=== PATIENT | female | born 1990 | race Caucasian/White ===

== ENCOUNTER 2020-05-25 08:09 | Emergency (ER) | payer BC, SELFPAY ==
--- NOTE | 2020-05-25 08:17 | ED.ABDPAIN ---
HPI - Abdominal Pain General Chief Complaint: Abdominal Pain Stated Complaint: Abdominal pain Time Seen by Provider: 05/25/20 08:33 Source: patient and RN notes reviewed Mode of arrival: ambulatory Limitations: no limitations History of Present Illness HPI narrative: 30-year-old female presents with concern for abdominal pain. Reports symptoms started on Sunday and have been worsening. She reports change in bowel habits, reports stools were liquidy on Sunday and Sunday and have become more soft. She denies vomiting, reports normal appetite. Reports her last menstrual period ended yesterday. She reports a history of endometriosis for which she had surgery 1 year ago. Reports she also had her appendix removed 1 year ago. She denies fever. MD elicited complaint: abdominal pain Related Data Home Medications Medication Instructions Recorded Confirmed norethindrone-e.estradiol-iron 1 tablet PO DAILY 05/25/20 05/25/20 [Aurovela Fe 1-20 (28)] Allergies Allergy/AdvReac Type Severity Reaction Status Date / Time No Known Allergies Allergy Verified 05/25/20 08:29 Review of Systems Review of Systems: Narrative: CONSTITUTIONAL: Denies malaise, chills, sweats, or fever. ENT: Denies sore throat. CARDIOVASCULAR: Denies chest pain, palpitations, or edema. RESPIRATORY: Denies cough or dyspnea. GASTROINTESTINAL: Reports abdominal pain, diarrhea, soft stools. Denies nausea, vomiting,bloody, or mucous stools. GENITOURINARY: Denies frequency, urgency, dysuria or hematuria. Denies flank pain MUSCULOSKELETAL: Denies myalgia. All systems reviewed & are unremarkable except as noted in HPI and below PMFSH Social History Social History Smoking status: Never smoker Second hand tobacco smoke exposure: No Alcohol intake: never Gender identity (if verbalized by the patient): Female Comments At time of signature, agree with nursing past medical, surgical, social and family history. There is no relevant family history pertinent to the presenting complaint Exam Narrative: Exam Narrative: GENERAL: Well-appearing, well-nourished, and in no acute distress. HEAD: Normocephalic. EYES: PERRLA, conjunctivae clear. NECK: Supple. No lymphadenopathy CHEST: Clear to auscultation. No respiratory distress. HEART: Regular rate and rhythm. No murmur heard. Normal peripheral pulses. ABDOMEN: Soft, left upper quadrant and left lower quadrant tenderness upon palpation, nondistended, normal active bowel sounds, no palpable or pulsatile masses, no guarding. No CVA tenderness SKIN: Warm, dry, no rash. NEURO: Alert and oriented x3. PSYCH: Normal mood and affect Course Course Emergency Course: Patient is aware of, understands and agrees to be seen in the emergency department. Patient agrees to proceed directly to the emergency department. Portions of this record may have been created with voice recognition software Vital Signs Vital signs: Reviewed. Transfer Transfered to: [facility] Transportation: Other (Private vehicle) Transfer rationale: Abdominal pain, left lower quadrant, left upper quadrant tenderness Transfer comments: Patient stable for transfer patient stable for transfer via private vehicle MDM - Abdominal Pain MDM Narrative Medical decision making narrative: Patient's history and exam warrant further evaluation emergency department Lab Data Attestation: I reviewed the patient's lab results. Critical Care Time Critical Care Time Critical Care Time: No Discharge Plan Discharge Clinical Impression: Abdominal pain Patient Disposition: Acute Care Hospital Prescriptions: No Action norethindrone-e.estradiol-iron [Aurovela Fe 1-20 (28)] 1 mg-20 mcg (21)/75 mg (7) Tablet 1 tablet PO DAILY RF: 0 Follow-up/Referrals: Va Booker MD [Primary Care Provider] - Time of Disposition: 08:49
[2020-05-25 08:21] VITALS: BP 107/63; PULSE 72; RESP 16; TEMP 37; O2SAT 99
== END 2020-05-25 08:48 | disposition short-term general hospital (02) ==
PROVIDERS: Emergency Provider Nurse Practitioner; PCP Family Medicine
DX: R10.32 Left lower quadrant pain (principal); R10.12 Left upper quadrant pain
CPT/HCPCS: 81003; 81025; 99213; G0463

== ENCOUNTER 2020-05-25 09:03 | Emergency (ER) | payer BC, SELFPAY ==
--- NOTE | ~2020-05-25 | CT_ITS ---
EXAMINATION: CT abdomen pelvis w con DATE: 05/25/2020 10:28 INDICATION: Left upper quadrant abdominal pain for 4 days TECHNIQUE: Computed tomography (CT) of the abdomen and pelvis was performed with 100 cc Omnipaque 350 intravenous contrast. Automated exposure control and iterative reconstruction technique were employe d. Exam dose: 212.33 mGy-cm total exam DLP. COMPARISON: None. FINDINGS: The lung bases are clear. Heart size is normal. No pericardial or pleural effusion. The liver, gallbladder, spleen, pancreas, bile ducts and pancreatic duct, and adrenal glands and kidn eys appear normal. Normal caliber of the abdominal aorta. There is a curvilinear 9 mm opaque density in the right lateral pelvic area adjacent to the cecal tip , possibly postsurgical changes from appendectomy or less likely some opaque material within the appe ndix. Recommend correlation with surgical history. No CT evidence of appendicitis is appreciated. No bowel obstruction, bowel wall thickening, pneumatosis or intraperitoneal free air. 12 mm probable left ovarian cyst. Up to approximately 8 mm right ovarian probable cysts. The uterus, adnexal areas and urinary bladder otherwise unremarkable. No intraperitoneal or retroperitoneal or pelvic mass lesion or adenopathy or ascites. Included skeletal structures are unremarkable. IMPRESSION: Possible appendectomy; recommend clinical correlation; no apparent evidence of appendici tis Probable ovarian cysts Reviewed, dictated and finalized at [facility]. Reviewed, dictated and finalized at [facility]. IMPRESSION: Possible appendectomy; recommend clinical correlation; no apparent evidence of appendicitis Probable ovarian cysts
--- NOTE | 2020-05-25 09:05 | ED.ABDPAIN ---
HPI - Abdominal Pain General Chief Complaint: Abdominal Pain Stated Complaint: ABD PAIN Time Seen by Provider: 05/25/20 09:05 Source: patient Mode of arrival: ambulatory Limitations: no limitations History of Present Illness HPI narrative: Patient is a 30-year-old female with a history of endometriosis who presents for evaluation from urgent care for left-sided abdominal pain. Pain is currently mild in nature, intermittently crampy in nature. Started initially over 3 days ago and was sharp and stabbing in nature mostly on the left side of her abdomen including upper and lower abdomen. No radiation of pain to the flank. She has had some associated nausea without vomiting. No fever, chills, has had some associated watery diarrhea. No recent travels. No severe myalgias. No cough, chest pain, shortness of breath. No recent sick contacts. No food indiscretions. Per urgent care, patient negative test, negative urinalysis. Related Data Home Medications Medication Instructions Recorded Confirmed norethindrone-e.estradiol-iron 1 tablet PO DAILY 05/25/20 05/25/20 [Aurovela Fe 1-20 (28)] Allergies Allergy/AdvReac Type Severity Reaction Status Date / Time No Known Allergies Allergy Verified 05/25/20 08:29 Review of Systems Review of Systems: Narrative: CONSTITUTIONAL: Denies fever ENT: Denies rhinorrhea, congestion CARDIOVASCULAR: Denies chest pain, palpitations, or edema. RESPIRATORY: Denies cough or dyspnea. GASTROINTESTINAL: Reports left-sided abdominal pain, nausea without vomiting, reports watery diarrhea GENITOURINARY: Denies dysuria or hematuria. SKIN: Denies rash or itching. MUSCULOSKELETAL: Denies back pain, joint pain, or myalgia. NEUROLOGIC: Denies headache, numbness, or weakness. [facility] Past Medical History Medical History (Updated 05/25/20 @ 11:08 by Nazia Mcdaniel MD) Endometriosis Healthy adult Surgical History Surgical History (Updated 05/25/20 @ 09:21 by Nazia Mcdaniel MD) History of appendectomy Social History Social History Smoking status: Never smoker Second hand tobacco smoke exposure: No Alcohol intake: never Gender identity (if verbalized by the patient): Female Exam Narrative: Exam Narrative: GENERAL: Awake, alert, conversant HEAD: Normocephalic, atraumatic. EYES: PERRLA and EOMI. ENT: Nares clear, no rhinorrhea or epistaxis. Mucous membranes moist. NECK: Supple. CHEST: No respiratory distress, breathing even and non labored HEART: Regular rate, sinus rhythm ABDOMEN:Non distended, mild tenderness of the left upper and left lower quadrant, no rebound, no guarding, nonrigid, no focal right upper or right lower quadrant tenderness EXTREMITIES: Normal range of motion. No edema. SKIN: Warm, dry, no rash. NEURO:No focal deficits. Alert and oriented x3 Course Vital Signs Vital signs: Vital Signs Temperature 36.8 C 05/25/20 09:30 Pulse Rate 71 05/25/20 09:30 Respiratory Rate 16 05/25/20 09:30 Blood Pressure 129/76 05/25/20 09:30 Pulse Oximetry 99 05/25/20 09:30 Temperature 36.8 C 05/25/20 09:30 Pulse Rate 71 05/25/20 09:30 Respiratory Rate 16 05/25/20 09:30 Blood Pressure 129/76 05/25/20 09:30 Pulse Oximetry 99 05/25/20 09:30 MDM - Abdominal Pain MDM Narrative Medical decision making narrative: Patient presented from urgent care for evaluation of left-sided middle abdominal pain. The time of assessment, pain is very benign, abdominal exam is quite reassuring. Laboratory work-up is reassuring. CT scan shows ovarian cyst without evidence of infection, obstruction or mass. Considered ovarian torsion for etiology of symptoms, but patient is not having any lower pelvic pain, no recurrent pain, thus I doubt this diagnosis. At this point, patient is comfortable discharge home. Patient was instructed as to limitations of imaging and lab evaluation and encouraged to re
[2020-05-25 09:30] VITALS: BP 129/76; PULSE 71; RESP 16; TEMP 36.8; O2SAT 99
[2020-05-25 09:48] LABS: Basophils Absolute Auto 0.1 K/mm3 (0.0-0.1); Basophils Percent Auto 0.6 % (0.2-1.2); Eosinophils Absolute Auto 0.1 K/mm3 (0-0.3); Eosinophils Percent Auto 0.8 % (0-4.4); Hematocrit 45.6 % (37.0-47.0); Hemoglobin 15.5 g/dL (12.0-15.0); Immature Granulocyte Absolute 0.02 K/mm3 (0.00-0.031); Immature Granulocyte Percent A 0.3 % (0-0.5); Lymphocytes Absolute Auto 1.96 K/mm3 (0.9-3.2); Lymphocytes Percent Auto 25.2 % (18.3-44.2); Mean Corpuscular Hemoglobin 31.4 pg (26-34); Mean Corpuscular Volume 92.3 fl (80-100); Mean Platelet Volume 11.5 fl (7.4-10.4); Monocytes Absolute Auto 0.4 K/mm3 (0.1-0.6); Monocytes Percent Auto 5.4 % (2.6-8.5); Neutrophils Absolute Auto 5.3 K/mm3 (1.3-6.7); Neutrophils Percent Auto 67.7 % (45.5-73.1); Platelet Count Result 247 k/mm3 (150-375); Red Blood Count 4.94 M/mm3 (4.2-5.4); Red Cell Distribution Width 11.6 % (11.5-14.5); White Blood Count 7.8 K/mm3 (4.5-10.0)
[2020-05-25 09:59] LABS: Add Urine Microscopic? NO; Appearance Urine Clear (Clear); Bilirubin Urine Negative (Negative); Blood Urine Negative (Negative); Color Urine Yellow (Yellow); Glucose Urine UA Negative (Negative); Ketones Urine Negative (Negative); Leukocyte Esterase Ur Negative LEU/UL (Negative); Mucus Urine Few /lpf; Nitrate Urine Negative (Negative); Protein Urine Negative (Negative); RBC Urine 0-2 /hpf (0-2); Specific Grav Ur 1.025 (1.001-1.035); Squamous Epithelial Cell Urine Rare /hpf (Few); Urobilinogen Urine Negative mg/dL (<2.0); WBC Urine 0-3 /hpf
[2020-05-25 10:06] LABS: Alanine Aminotransferase 12 U/L (4-35); Albumin Level 4.4 g/dL (3.5-5.1); Alkaline Phosphatase 53 U/L (38-126); Anion Gap 6 mmol/L (8-16); Aspartate Amino Transferase 18 U/L (14-36); Bilirubin,Total 0.8 mg/dL (0.2-1.3); Blood Urea Nitrogen 12 mg/dL (7-17); Calcium 9.2 mg/dL (8.4-10.2); Carbon Dioxide 26 mmol/L (22-30); Chloride 106 mmol/L (98-107); Estimated CRCL calculation 88 ml/min; Estimated Glomerular Filt Rate > 60; Glucose 88 mg/dL (65-105); Lipase 47 U/L (23-300); Potassium 3.7 mmol/L (3.4-5.0); Sodium 138 mmol/L (137-145)
[2020-05-25 11:35] VITALS: BP 108/58; PULSE 50; RESP 16; O2SAT 100
== END 2020-05-25 11:35 | disposition home or self-care (01) ==
PROVIDERS: Emergency Provider Emergency Medicine; PCP Family Medicine
DX: R10.9 Unspecified abdominal pain (principal); N80.9 Endometriosis, unspecified; R93.89 Abnormal findings on diagnostic imaging of other specified body structures
CPT/HCPCS: 36415; 74177; 80053; 81003; 81025; 83690; 85025; 99284; Q9967

== ENCOUNTER 2021-03-10 10:18 | Emergency (ER) | payer OTHER, SELFPAY ==
--- NOTE | ~2021-03-10 | XR_ITS ---
XR chest 2V DATE: 03/10/2021 12:32 INDICATION: Cough, chest tightness for a few months. Nonsmoker. History of asthma. TECHNIQUE: 2 views COMPARISON: None FINDINGS: Normal heart size. No hilar or mediastinal enlargement. No pulmonary infiltrate or consolid ation, pleural effusion or pulmonary vascular congestion or pneumothorax. IMPRESSION: Negative Reviewed, dictated and finalized at [facility]. IMPRESSION: Negative
[2021-03-10 10:33] VITALS: BP 109/69; PULSE 71; RESP 17; TEMP 36.5; O2SAT 100
--- NOTE | 2021-03-10 12:17 | ED.URI ---
HPI - URI/Sore Throat General Chief Complaint: Upper Respiratory Infection Stated Complaint: cough/chest tightness Time Seen by Provider: 03/10/21 12:18 Source: patient Mode of arrival: ambulatory Limitations: no limitations History of Present Illness HPI Narrative: Juliette Sigala is a 30 yo female with headaches, dry cough, comes to this clinic 4-6 month. Patient states that she coughs hard at night and feels like she is choking, short of breath this week with exertion, no fever but also feels fatigued . Related Data Home Medications Medication Instructions Recorded Confirmed norethindrone ac-eth estradiol 1 tablet PO DAILY 03/10/21 03/10/21 sertraline 100 mg PO DAILY 03/10/21 03/10/21 Allergies Allergy/AdvReac Type Severity Reaction Status Date / Time No Known Allergies Allergy Verified 03/10/21 10:51 Review of Systems Review of Systems: Narrative: CONSTITUTIONAL: Denies fever, chills, sweats. EYES: Denies visual changes, redness, discharge. ENT: Denies rhinorrhea, no congestion, has sore throat, otalgia. CARDIOVASCULAR: Denies chest pain, palpitations, edema. RESPIRATORY: dyspnea with walking, wheezing, dry cough GASTROINTESTINAL: Denies abdominal pain, nausea, vomiting, diarrhea. GENITOURINARY: Denies dysuria, hematuria, abnormal discharge SKIN: Denies rash or itching. NEUROLOGIC: Denies numbness, or focal weakness. PSYCHIATRIC: Denies anxiety or depression. PMFSH Past Medical History Medical History Endometriosis Healthy adult Surgical History Surgical History History of appendectomy Family History Family History Grandparent Diabetes mellitus Malignant neoplasm of prostate Social History Social History Smoking status: Never smoker Second hand tobacco smoke exposure: No Alcohol intake: never Gender identity (if verbalized by the patient): Female Comments At time of signature, I agree with nursing past medical, surgical, social and family history. There is no relevant family history pertinent to the presenting complaint. Exam Narrative: Exam Narrative: GENERAL: This is a well-nourished, well-developed patient, in mild distress. HEAD: normocephalic, atraumatic. EYES: Sclera clear/white. Vision is grossly intact. EARS: External ears normal, auditory canals clear and without drainage, TMs normal without perforation. Hearing grossly intact. NOSE: External nose normal without nasal discharge, nares without redness, no rhinorrhea. THROAT: Mucous membranes moist, posterior pharynx erythema and swelling NECK: Neck supple, submandibular tender lymph node CARDIOVASCULAR: Regular rate and rhythm without murmurs, gallops, or rubs. RESPIRATORY: Coarse to auscultation. Breath sounds equal bilaterally. No wheezes, rales, or rhonchi. GASTROINTESTINAL: Abdomen soft, non-tender, SKIN: warm, intact with no suspicious lesions or rash, good texture and turgor. NEURO: awake, alert, and oriented to person, place and time. There were no obvious focal neurologic abnormalities. Steady gait EXTREMITIES: Normal range of motion. BACK: Nontender without deformity Course Course Emergency Course: Patient comes with complaints of cough that makes her feel like checking at night breath with walking she states has had some cough and fatigue symptoms for 5 to 6 months sore throat she says she started 4 to 5 days ago Her strep is negative Covid is negative X-ray is negative - no pulmonary infiltrate, no pleural effusion Started on Zithromax, prednisone, Tessalon Vital Signs Vital signs: Vital Signs Temperature 97.7 F 03/10/21 10:33 Pulse Rate 71 03/10/21 10:33 Respiratory Rate 17 03/10/21 10:33 Blood Pressure 109/69 03/10/21 10:33 Pulse Oximetry 100 03/10/21 10:33 T
== END 2021-03-10 12:59 | disposition home or self-care (01) ==
PROVIDERS: Emergency Provider Nurse Practitioner; PCP Family Medicine
DX: J40 Bronchitis, not specified as acute or chronic (principal); L04.9 Acute lymphadenitis, unspecified; Z20.822 Contact with and (suspected) exposure to COVID-19; N80.9 Endometriosis, unspecified
CPT/HCPCS: 71046; 87081; 87426; 87880; 99213; C9803; G0463

== ENCOUNTER → 2021-04-15 04:20 | Outpatient (CLI) | payer OTHER, SELFPAY ==
[2021-04-15 18:23] LABS: SARS-CoV-2 RNA PCR Negative
== END ==
PROVIDERS: PCP Family Medicine; Visit Provider Physician Assistant
DX: R05 Cough (principal); Z20.822 Contact with and (suspected) exposure to COVID-19
CPT/HCPCS: C9803; U0003; U0005

== ENCOUNTER → 2021-11-10 12:06 | Outpatient (CLI) | payer SELFPAY ==
--- NOTE | ~2021-11-10 | XR_ITS ---
EXAMINATION: XR wrist LT w scaphoid INDICATION: Left breast pain TECHNIQUE: Four views of the left wrist are obtained on five radiographs. COMPARISON: 11/12/2018 FINDINGS: There is no fracture, dislocation, or subluxation. The bones, soft tissues, and joint space s are normal. IMPRESSION: 1. No acute osseous abnormality. Reviewed, dictated and finalized at [facility].
== END ==
PROVIDERS: PCP Physician Assistant; Visit Provider Physician Assistant
DX: S69.92XA Unspecified injury of left wrist, hand and finger(s), initial encounter (principal)
CPT/HCPCS: 73110

== ENCOUNTER 2022-03-31 06:47 | Outpatient (CLI) | payer OTHER, SELFPAY ==
--- NOTE | ~2022-03-31 | MR_ITS ---
EXAMINATION: MR cervical spine wo con DATE: 03/31/2022 07:21 INDICATION: Neck pain. TECHNIQUE: Magnetic resonance imaging (MRI) of the cervical spine was performed without intravenous c ontrast. Sequences included sagittal T2-weighted FSE, sagittal T2-weighted FS FSE, sagittal T1-weight ed FSE, axial MERGE, and axial T2-weighted FSE. COMPARISON: None FINDINGS: Bone alignment is normal. Vertebral body heights and intervertebral disc heights are normal . The spinal cord signal intensity is normal. The following disc levels are specifically discussed: C2-C3: The disc does not extend beyond the endplate margin. There is no uncovertebral joint osteoarth ritis. There is mild left facet joint osteoarthritis. There is no neural foraminal stenosis. There is no central canal stenosis. C3-C4: The disc does not extend beyond the endplate margin. There is mild left uncovertebral joint os teoarthritis. There is mild bilateral facet joint osteoarthritis. There is no neural foraminal stenos is. There is no central canal stenosis. C4-C5: The disc does not extend beyond the endplate margin. There is no uncovertebral joint osteoarth ritis. There is no facet joint osteoarthritis. There is no neural foraminal stenosis. There is no monique tral canal stenosis. C5-C6: The disc does not extend beyond the endplate margin. There is no uncovertebral joint osteoarth ritis. There is no facet joint osteoarthritis. There is no neural foraminal stenosis. There is no monique tral canal stenosis. C6-C7: The disc does not extend beyond the endplate margin. There is no uncovertebral joint osteoarth ritis. There is mild bilateral facet joint osteoarthritis. There is no neural foraminal stenosis. The re is no central canal stenosis. C7-T1: The disc does not extend beyond the endplate margin. There is no uncovertebral joint osteoarth ritis. There is no facet joint osteoarthritis. There is no neural foraminal stenosis. There is no monique tral canal stenosis. IMPRESSION: 1. Multilevel mild facet joint osteoarthritis. Reviewed, dictated and finalized at [facility].
== END 2022-03-31 06:48 | disposition home or self-care (01) ==
PROVIDERS: PCP Family Medicine; Visit Provider Physician Assistant
DX: S19.9XXA Unspecified injury of neck, initial encounter (principal); M54.2 Cervicalgia; M85.88 Other specified disorders of bone density and structure, other site
CPT/HCPCS: 72141

== ENCOUNTER → 2022-10-25 09:11 | Outpatient (CLI) | payer SELFPAY ==
--- NOTE | ~2022-10-25 | XR_ITS ---
XR foot LT min 3V DATE: 10/25/2022 09:27 INDICATION: Left foot pain TECHNIQUE: 4 views COMPARISON: None FINDINGS: Os tibiale externum, normal variant. No fracture or dislocation, periosteal reaction or bone destruction. IMPRESSION: No significant abnormality Reviewed, dictated and finalized at [facility]. [facility] IMPRESSION: No significant abnormality
== END ==
PROVIDERS: PCP Family Medicine; Visit Provider Family Medicine
DX: M79.672 Pain in left foot (principal)
CPT/HCPCS: 73630

== ENCOUNTER 2024-07-23 13:50 | Outpatient (CLI) | payer OTHER, SELFPAY ==
--- NOTE | ~2024-07-23 | US_ITS ---
EXAMINATION: US pelvic complete w TV DATE: 07/23/2024 14:17 INDICATION: Unspecified abdominal pain. Endometriosis. TECHNIQUE: Multiple transabdominal and transvaginal sonographic images of the pelvis were obtained. COMPARISON: CT abdomen and pelvis 05/25/2020 FINDINGS: TRANSABDOMINAL ULTRASOUND: The uterus is absent. There is no free fluid in the pelvis. TRANSVAGINAL ULTRASOUND: The right ovary measures 2.4 x 1.8 x 1.6 cm. The left ovary measures 2.3 x 2.0 x 2.0 cm. There is nor mal vascular flow in the ovaries. IMPRESSION: 1. Normal ovaries. 2. Absent uterus. Reviewed, dictated and finalized at [facility]. [employer]
== END 2024-07-23 13:51 | disposition home or self-care (01) ==
PROVIDERS: PCP Student in an Organized Health Care Education/Training Program; Visit Provider Student in an Organized Health Care Education/Training Program
DX: R10.9 Unspecified abdominal pain (principal); Z90.710 Acquired absence of both cervix and uterus; Z87.42 Personal history of other diseases of the female genital tract
CPT/HCPCS: 76830; 76856

== ENCOUNTER 2024-08-28 18:06 | Emergency (ER) | payer OTHER, SELFPAY ==
[2024-08-28 18:13] VITALS: BP 121/52; PULSE 69; RESP 16; TEMP 36.8; O2SAT 100
--- NOTE | 2024-08-28 18:56 | ED_ITS ---
HPI - Female Genitourinary General Chief complaint: Urogenital-Female Stated complaint: UTI Time Seen by Provider: 08/28/24 18:56 Source: patient, RN notes reviewed and old records reviewed Mode of arrival: ambulatory Limitations: no limitations History of Present Illness HPI Narrative: 34-year-old female presents to the [facility] with 7 day history of frequency, urgency and painful urination. Patient reports lower abdominal spasming Denies vomiting. No CVA tenderness. Denies abdominal pain Onset (ago): day(s) (7) Related Data Allergies Allergy/AdvReac Type Severity Reaction Status Date / Time No Known Allergies Allergy Verified 08/28/24 18:13 Review of Systems Review of Systems: All systems reviewed & are unremarkable except as noted in HPI and below Constitutional: Constitutional: Reports no additional constitutional complaints ENT: Reports system reviewed and no additional complaints, except as documented Cardiovascular: Cardiovascular: Reports no additional cardiovascular complaints, Denies chest pain and Denies dyspnea Respiratory: Respiratory: Reports no additional respiratory complaints, Denies chest congestion, Denies cough and Denies dyspnea Genitourinary: Genitourinary: Reports as per HPI Musculoskeletal: Musculoskeletal: Reports no additional musculoskeletal complaints Integumentary/Breasts: Skin/Breast: Reports system reviewed and no additional complaints, except as docu PMFSH Past Medical History Medical History Tendinitis of left flexor hallucis longus Impingement of left ankle joint Anxiety Depression Asthma Wears glasses Chronic headaches Flat foot [pes planus] (acquired), left foot Posterior tibial tendon dysfunction (PTTD) of left lower extremity Endometriosis Healthy adult Surgical History Surgical History History of laparoscopy H/O: hysterectomy History of appendectomy Family History Family History Grandparent Diabetes mellitus Malignant neoplasm of prostate Other Heart disease Social History Social History Smoking status: Never smoker Second hand tobacco smoke exposure: No Alcohol intake: never Substance use: current Substance use type: marijuana Other substance usage details: smokes marijuana 2-3 times daily Lack of Transportation: No Lack of Food: Never True Current Housing: I Have Housing Concerned About Future Housing: No Difficulty Paying Gas/Electric Bills: No Difficulty Paying for Meds: No Currently Unemployed: No Education: Associate Degree Difficulty w/ Childcare or Family Care: No Gender identity (if verbalized by the patient): Female Spiritual care concerns: No Agree to blood products: Yes Comments At the time of my signature, I reviewed and agree with the nursing past medical, surgical, social, and family history. There is no relevant family history pertinent to the patient complaint. Exam Const: General: cooperative, healthy appearing, comfortable, no acute distress, well developed, alert and well nourished Nutritional Appearance: well nourished Orientation/consciousness: patient oriented x3 Limitations: no limitations HENMT: Head: normal to inspection Eyes: General: appearance normal, both eyes and all related structures Alignment and Position: alignment normal Neck: Neck: normal visual inspection, full ROM, no lymphadenopathy and no meningeal signs Chest: Chest palpation & inspection: normal inspection of the chest Resp: Effort & Inspection: normal respiratory effort and able to speak in complete sentences Auscultation: clear to auscultation bilaterally, no crackles, no rales, no rhonchi and no wheezes Cardio: Rate: regular rate GI: GI Palp: No abdominal tenderness : General: Yes no CVA tenderness Skin: General skin exam: normal color and no rashes or lesions noted Neuro: General: patient oriented x3, gait normal, moves all extremities and no meningeal signs Cognition (Neuro): normal cognition Speech: normal speech Gait exam (Neuro): Normal gait present Extrem: General: normal to inspection, full ROM, capillary refill normal and normal gait Psych: Appearance: grossly normal and well kempt Mental Status: mental status grossly normal Speech and movement: Normal speech and movement present and Clear speech present Affect: normal affect Attitude: cooperative Course Course Level of Care: Express Care Visit Vital Signs Vital signs: Vital Signs Temperature 98.2 F 08/28/24 18:13 Pulse Rate 69 08/28/24 18:13 Respiratory Rate 16 08/28/24 18:13 Blood Pressure 121/52 L 08/28/24 18:13 Pulse Oximetry 100 08/28/24 18:13 Oxygen Delivery Room Air 08/28/24 18:13 Temperature 98.2 F 08/28/24 18:13 Pulse Rate 69 08/28/24 18:13 Respiratory Rate 16 08/28/24 18:13 Blood Pressure 121/52 L 08/28/24 18:13 Pulse Oximetry 100 08/28/24 18:13 Oxygen Delivery Room Air 08/28/24 18:13 Reviewed MDM - Female Genitourinary MDM Narrative Medical decision making narrative: Patient sitting comfortably in exam room. Nontoxic, vitals stable. Patient presents with 7 day history of urinary symptoms. Patient urine positive nitrites, leukocytes. Patient appropriate for outpatient treatment and close follow-up. Discharge instructions reviewed with patient, as well as provided in writing per nursing staff. The instructions also include specific and strict return/GO TO THE ER as well as f/u information. All questions have been answered, and the patient deny any further questions with discharge and discharge plan. Some parts of this dictation were generated by voice recognition software and may contain typographical and/or grammatical inaccuracies. Differential Diagnosis Differential diagnosis: Likely urinary tract infection and cystitis Lab Data Labs: Lab Results 08/28/24 Range/Units 18:20 POC Urine Color Yellow POC Urine Clarity Cloudy POC Urine pH 6.0 POC Ur Specif [place] 1.025 POC Urine Protein Negative (Negative) POC Ur Glucose (UA) Negative (Negative) POC Urine Ketones 1+ (Negative) POC Urine Blood Negative (Negative) POC Urine Nitrite Positive (Negative) POC Urine Bilirubin Negative (Negative) POC Urine Urobilinogen 0.2 POC U Leukocyte Esteras 1+ (Negative) Reviewed Critical Care Time Critical Care Time Critical Care Time: No Discharge Plan Discharge Clinical Impression: Urinary tract infection Qualifiers: Urinary tract infection type: acute cystitis Hematuria presence: with hematuria Qualified Code(s): N30.01 - Acute cystitis with hematuria Patient Disposition: Home, Self-Care Condition: Stable Instructions: Antibiotic Form, Urinary Tract Infection in Women (ED) Additional Instructions: Increased water intake Take Tylenol as needed for pain Take antibiotic as prescribed Today your urine dip showed a probability of a UTI. You have been prescribed an antibiotic. Your urine will be sent to our lab for a culture. If at that time a bacteria grows that is not covered by the antibiotic prescribed you will be notified. Follow-up with primary care For new or worsening symptoms go directly to the emergency room Patient Language: Macedonian Prescriptions: New amoxicillin-pot clavulanate 875-125 mg tablet 1 tablet PO Q12H Qty: 10 0RF No Action topiramate [Topamax] 25 mg tablet 25 mg PO BID Qty: 60 4RF Follow-up/Referrals: Va Booker MD [Primary Care Provider] - 2 Weeks ([facility] care follow up ) Stand Alone Forms: Work/School Release IP Time of Disposition: 18:56
[2024-08-28 18:58] LABS: EDUAAPPEAR Cloudy; EDUABILI Negative (Negative); EDUABLOOD Negative (Negative); EDUACOLOR1 Yellow; EDUAGLUCOSE Negative (Negative); EDUAKETONE 1+ (Negative); EDUALEUKO 1+ (Negative); EDUANITRATE Positive (Negative); EDUAPROTEIN Negative (Negative); EDUASPGRAVITY 1.025; EDUAUROBILI 0.2
== END 2024-08-28 19:00 | disposition home or self-care (01) ==
PROVIDERS: Emergency Provider Nurse Practitioner; PCP Family Medicine
DX: N30.01 Acute cystitis with hematuria (principal); B96.20 Unspecified Escherichia coli [E. coli] as the cause of diseases classified elsewhere; F12.90 Cannabis use, unspecified, uncomplicated; J45.909 Unspecified asthma, uncomplicated; N80.9 Endometriosis, unspecified
CPT/HCPCS: 81003; 87077; 87086; 87186; 99213; G0463

== ENCOUNTER 2024-11-14 15:23 | Outpatient (CLI) | payer OTHER, SELFPAY ==
--- NOTE | ~2024-11-14 | CT_ITS ---
CLINICAL INDICATION: Left lower quadrant pain. COMPARISON: 05/25/2020. TECHNIQUE: Multiple contiguous axial images of the abdomen and pelvis were performed following the ad ministration of with 100 mL Omnipaque-350 intravenous contrast The dose-length product (DLP) was 320.63 mGy-cm. Automated exposure control and iterative reconstruction technique were employed. FINDINGS/OBSERVATIONS: Visualized lower thorax: The bilateral lung bases are clear. The heart is of normal size, without pericardial effusion. Small hiatal hernia is present. Liver: The liver demonstrates homogeneous enhancement and is not enlarged measuring 18 cm in longitudinal di mension. Gallbladder and biliary system: The gallbladder is only minimally distended, and otherwise unremarkable. Pancreas: The pancreas enhances homogeneously without ductal dilatation. Spleen: The spleen enhances homogeneously and is not enlarged measuring 8 cm in longitudinal dimension. Kidneys: Interval development of a 6 mm calculus within the lower pole of the right kidney. The remainder of the bilateral kidneys otherwise enhance symmetrically without hydronephrosis or pierce l calculi. Adrenal glands: Unremarkable. Gastrointestinal tract: Fecal stasis within the colon. Appendix: The appendix is not definitively visualized. However, no pericecal inflammatory change is identified suggest the presence of acute appendicitis. Vasculature: Unremarkable. Lymph nodes: No pathologically enlarged or morphologically suspicious lymph nodes within the retroperitoneum or at the root of the mesentery. Pelvic structures: The bladder is decompressed, and otherwise unremarkable. The uterus is either atrophic or surgically absent. Body wall and musculoskeletal: No significant degenerative disease within the lower thoracic or lumbosacral spine. IMPRESSION: Nonobstructing 6 mm calculus within the lower pole of the right kidney. Examination is otherwise unchanged from previous study performed 05/25/2020. Reviewed, dictated and finalized at location A.
== END 2024-11-14 15:24 | disposition home or self-care (01) ==
PROVIDERS: PCP Family Medicine; Visit Provider Student in an Organized Health Care Education/Training Program
DX: N20.0 Calculus of kidney (principal); R10.32 Left lower quadrant pain; G89.29 Other chronic pain; R19.8 Other specified symptoms and signs involving the digestive system and abdomen
CPT/HCPCS: 74177; Q9967

== ENCOUNTER 2024-11-25 17:37 | Outpatient (CLI) | payer OTHER, SELFPAY ==
--- OUTSIDE RECORDS SUMMARY | 2024-11-25 17:41 | XMS_ITS | Encounter Summary ---
Author Organization [facility] Address [address] [place] [address] Care Team Providers Care Family And Consumer Education Teacher Name Role Phone Va Booker MD Primary Care Provider [phone] Va Booker MD Unavailable Ashley Bedoya Unavailable Reason for Visit * Reason Onset Date Comments MEDICATION REFILL 05/21/2023 Encounter Details Date Type Department Care Team (Late st Contact Info) Description 05/21/2023 Refill [facility] - Neurology [address] [place] [address], [place] [address] Alley Colvin MD [address] [place] [address] [place] [address] MEDICATION REFILL Social History Tobacco Use Types Packs/Day Years Used Date Smoking Tobacco: Never Smokeless Tobacco: Never Alcohol Use Standard Drinks/Week Comments Not Currently 4 (1 standard drink = 0.6 oz pur e alcohol) occ AUDIT-C Answer Date Recorded Q1: How often do you have a drink containing alc ohol? Monthly or less 05/18/2022 Q2: How many drinks containi ng alcohol do you have on a typical day when you are drinking? 1 or 2 05/18/2022 Q3: How often do you have si x or more drinks on one occasion? Never 05/18/2022 Sex and Gender Information Value Date Recorded Sex Assigned at Female 11/01/2022 2:28 PM CDT Gender Identity Female 11/01/2022 2:28 PM CDT Sexual Orientation Not on file documented as of this encounter Functional Status Functional Status Response Date of Assess ment Is person deaf or have serious hearing difficult y? No 06/05/2021 Is person blind or have serious difficulty seein g? No 06/05/2021 Does person have serious dif ficulty walking/climbing stairs? No 06/05/2021 Does person have difficulty dressing/bathing? No 06/05/2021 Does person have difficulty doing errands alone? No 06/05/2021 Cognitive Status Response Date of Assessm ent Does person have difficulty concentrating/remembering/making decisions? No 06/05/2021 documented as of this encounter Plan of Treatment Not on file documented as of this encounter Visit Diagnoses Diagnosis Cervicogenic headache Headache Migraine without aura and without status migrainosus, not intractable Migraine without aura, without mention of intractable migraine without mention of status migrainosus documented in this encounter Care Teams Family And Consumer Education Teacher Relationship Specialty Start Date End Date Va Booker MD [address] [place] [address] PCP - General 10/19/22 Va Booker MD [address] [place] [address] PCP - Attributed-[employer] [place] 12/18/22 09/19/23 Ashley Bedoya PA [address] [place] [address] PCP - [employer] [place] 09/20/23 02/05/24 documented as of this encounter
--- OUTSIDE RECORDS SUMMARY | 2024-11-25 17:41 | XMS_ITS | Patient Health Record ---
Author Organization [facility] Address [address] [place] [address] Support Name Relationship Address Phone Chantell Vera Emergency Contact Unknown Juliette Sigala Guarantor Unknown REASON FOR REFERRAL No Information MEDICATIONS Medication SIG (Take, Route, Frequency, Duration) Notes Start Date End Date Status Sprintec 28 0.25-35 MG-MCG 1 tab(s) oral ly once a day for 84 10/31/2013 Active PROBLEMS Problem Type ICD Code Onset Dates Problem Status W/U Status Risk SNOMED Code Notes Problem Asthma NOS (493.90) Active confirmed Low Asthma (310882105) Problem CONTRACEPT PILL SURVEILL (V25.41) Active confirmed Surveillance of oral contraception done (537908389068591) Problem HPV Special screening exam (V73.81) Active confirmed Problem Dyspareunia (female) (625.0) Active confirmed Pain in female genitalia on intercourse (89682795) PLAN OF TREATMENT No Information Insurance Providers Payer Name Payer Address Payer Phone Subscriber Number Group Number Insured Name Patient Relationship to Insured Coverage Start Date Coverage End Date [employer] ATTN ACCOUNTS PAYABLE [address] [address] [place] [phone] [id number] Juliette Sigala Self - patient is the insured MEDICAL (GENERAL) HISTORY Medical History History ICD Code exertional asthma-only flare with uri, n o albuterol currently heart murmur Surgical History Surgery Date(Month/Year) Eakly Teeth
--- OUTSIDE RECORDS SUMMARY | 2024-11-25 17:41 | XMS_ITS | Data Portability ---
[facility] [address] [place] [address] Assessment No assessment recorded. Plan of Treatment Reminders Order Date Submit Date Provider Last Modified By Organization Details Last Modified Time Details Appointments None recorded. Lab None recorded. Referral None recorded. Procedures None recorded. Surgeries None recorded. Imaging None recorded. Medication Orders prednisone 20 mg tablet 2015 016 [id number], [address], [id number], 6 15:20:00 Patient TargetsNo targets recorded. Patient InstructionsNo instructions recorded. Reason for Referral None Reported. Problems Name Problem SNOMED Code Status Onset Date Resolution Date Notes Provider Name and Address Organization Details Recorded Time Upper respiratory infection 37050460 Active Elisabeth robins [facility] 6 15:20:00 Allergic reaction 676602154 Active Elisabeth robins [facility] 6 15:30:32 Problem Notes None recorded. Procedures Surgical History Date Name Laterality Status Provider Name and Address Organization Details Recorded Time Other completed Elisabeth Rosie [facility] 01/19 15:20:00 Imaging Results None recorded. Procedure Notes None recorded. Medical Equipment None Reported. Allergies Allergen ID Allergen Name Allergen Category Reaction Reaction Severity Criticality Documentation Date Start Date Code Code System Note Provider Name and Address Organization Details Recorded Time 86333 prednisol one medicatio n other Not available Not available 01/20/2016 8638 RxNorm redne ss all over body Not Available Not Available Not Available Medications Name Sig Start Date Stop Date Status Note LastModified by Organization Details LastModified Time prednisone 20 mg tablet Take 5 tablets every day by oral route as directed for 3 days. 016 active Not Available Not Available Not Avai lable Sprintec (28) 0.25 mg-0.035 mg tablet Take 1 tablet every day by oral route. active Not Available Not Available No t Available Vitals Date Recorded Heart rate Respiratory rate Body temperature Body weight Body mass index (BMI) Body height Systolic blood pressure Diastolic blood pressure Provider Name and Address Organization Details Last Updated DateTime 6 76 /min 18 /min 97.9 [degF] 07364.3 0729 g 20.1 kg/m2 162.56 cm 104 mm[Hg] 70 mm[Hg] Opal Gonzalez [facility] 6 16:18:51 Date Recorded Body height Body mass index (BMI) Body weight Systolic blood pressure Diastolic blood pressure Provider Name and Address Organization Details Last Updated DateTime 01/20/2016 161.29 cm 20.7 kg/m2 60530.49 203 g 96 mm[Hg] 58 mm[Hg] Elisabeth Finchoten [facility] 6 15:20:00 Social History None recorded. Functional Status None recorded. Mental Status None recorded. Family History Nothing Reported. Medical History Condition Response Coronary Artery Disease N Other N Atrial Fibrillation N High Blood Pressure N Thyroid Problems N Kidney or Bladder Problems N Depression N COPD N Blood Clots N GI Problems N Skin Problems N Anemia N Heart Attack (IA) N Diabetes N Anxiety Disorder N Muscle, Joint, or Bone Problems N Seizures/Epilepsy N Acid Reflux (GERD) N Cancer N Stroke N Allergies N Asthma N High Cholesterol N Hepatitis N Liver Disease N Headaches N Osteoporosis N Heart Failure N Gynecological HistoryNo gynecological history recorded. Obstetrics History GPAL:G 0 P 0 0 0 0 Past Encounters Encounter ID Performer Location Encounter Start Date Encounter Closed Date Diagnosis/Indication Diagnosis SNOMED-CT Code Diagnosis ICD10 Code Diagnosis Note [id number] Walter Cárdenas MD [facility] [address] [place] [address] 01/18/2016 15:32:59 01/18/2016 17:09:13 Upper respiratory infection 22226003 J06.9 [id number] Walter Cárdenas MD [facility] [address] [place] [address] 01/20/2016 15:15:37 01/20/2016 15:40:07 Allergic reaction 117539153 T78.40XA Health Concerns Section Related Observation LastModified by Organization Detai ls LastModified Time None Recorded Concern Status LastModified by Organization Details LastModified Time None Recorded Advance Directives Directive None Recorded Payers Encounter Date Sequence Insurance Name Policy Number Policy Whiteside Covered Member ID Whiteside Member ID Guarantor Name 01/18/2016 1 [facility] [id number] Juliette Beckwith [id number] Juliette Sigala 01/20/2016 1 [facility] [id number] Julitete Beckwith [id number] Juliette Sigala OBGyn Episode No OBEpisode recorded.
--- OUTSIDE RECORDS SUMMARY | 2024-11-25 17:41 | XMS_ITS | Clinical Summary ---
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
--- OUTSIDE RECORDS SUMMARY | 2024-11-25 17:41 | XMS_ITS | Clinical Summary ---
Author Organization [facility] [employer] Address [address] [place] [address] Care Team Providers Care Animal Care Service Worker Name Role Phone Va Booker MD Primary Care Provider [phone] Source Comments [facility] [employer],non-owned Affiliates and Associated Physician Practices is amultiple site organization consisting of ambulatory clinics and hospital sitesin [place], [place], [place] and [place]. This disclosure is being madepursuant to the Care Everywhere program and may not contain all information available regarding this patient. Last updated 18.[facility] [employer] Allergies No known active allergies Medications * Be aware that medications may not be up to date on this document. Alwaysverify current medications with the patient. Medication Sig Dispensed Refills Start Date End Date Status onabotulinumtoxin A (BOTOX) 100 units injectionIndications :Migraine Inject 155 (one hundred fifty five) Units into muscle Every 90 days Reasons: Migraine Headache 2 Each 1 09/17/2023 Active onabotulinumtoxin A (Botox) 100 units injectionIndications :Migraine Inject 155 (one hundred fifty five) Units into muscle Every 90 days Reasons: Migraine Headache 2 Each 1 12/20/2023 Active baclofen (Lioresal) 10 MG tabletIndications:Ce rvicogenic headache,Migraine without aura and without status migrainosus, not intractable,Intracta ble chronic migraine without aura and without status migrainosus Take 1 (one) tablet by mouth once daily as needed for Muscle Spasms May cause drowsiness. 30 tablet 2 02/01/2024 Active topiramate (Topamax) 50 MG tabletIndications:Ce rvicogenic headache,Migraine without aura and without status migrainosus, not intractable Take 1 (one) tablet by mouth 2 times daily 180 tablet 3 02/01/2024 Active Active Problems Problem Noted Date Diagnosed Date Intractable chronic migraine without aura and without status migrainosus 12/20/2023 Pneumoperitoneum 06/05/2021 Peritonitis 06/05/2021 Status post hysterectomy 06/05/2021 Asthma 03/04/2021 Cervicalgia 03/04/2021 Costochondritis 03/04/2021 Chronic pelvic pain in female 07/07/2019 Immunizations Name Administration Dates Next Due Covid Pfizer primary monovalent 12+ yr 0.3mL Pur ple cap 04/19/2021 Family History Medical History Relation Name Comments Cancer - Breast Maternal Aunt Other - Evaporator Supervisor Maternal Aunt Vulvar Cancer Cancer - Prostate Maternal Grandfather Diabetes; unknown type Maternal Grandmother Lupus Maternal Grandmother Osteoporosis Maternal Grandmother Cancer - Breast Maternal Great-Grandmother Diabetes - Type 1 Mother Osteoporosis Mother Cancer - Ovarian Other Great Grand mother - Marernal Relation Name Status Comments Maternal Aunt Maternal Grandfather Maternal Grandmother Maternal Great-Grandmother Mother Other Social History Tobacco Use Types Packs/Day Years Used Date Smoking Tobacco: Never Smokeless Tobacco: Never Tobacco Cessation:Counseling Given: Not Answered Alcohol Use Standard Drinks/Week Comments Not Currently 0 (1 standard drink = 0.6 oz pur e alcohol) AUDIT-C Answer Date Recorded Q1: How often do you have a drink containing alc ohol? Monthly or less 05/18/2022 Q2: How many drinks containi ng alcohol do you have on a typical day when you are drinking? 1 or 2 05/18/2022 Q3: How often do you have si x or more drinks on one occasion? Never 05/18/2022 PHQ-2 Answer Date Recorded Patient Health Questionnaire-2 Score 2 12/20/2023 Sex and Gender Information Value Date Recorded Sex Assigned at Female 11/01/2022 2:28 PM CDT Gender Identity Female 11/01/2022 2:28 PM CDT Sexual Orientation Not on file Last Filed Vital Signs Vital Sign Reading Time Taken Comments Blood Pressure 101/64 03/19/2024 1:26 PM CDT Pulse 70 03/19/2024 1:47 PM CDT Temperature 36.7 C (98 F) 03/19/2024 1:26 PM CDT Respiratory Rate 16 03/19/2024 1:47 PM CDT Oxygen Saturation 100% 03/19/2024 1:47 PM CDT Inhaled Oxygen Concentration - - Weight 56.7 kg (125 lb) 02/04/2024 10:31 AM CDT Height 162.6 cm (5' 4 ) 02/04/2024 10:31 AM CDT Body Mass Index 21.46 02/04/2024 10:31 AM CDT Plan of Treatment Health Maintenance Due Date Last Done Comments DTAP/TDAP/TD VACCINES (1 - Tdap) 2010 HEPATITIS B VACCINE (1 of 3 - 19+ 3-dose series) 2010 PNEUMOCOCCAL VACCINE (1 of 2 - PCV) 2010 COVID-19 VACCINE (2 - 2023-2 5 season) 2024 04/19/2021 DEPRESSION SCREENING 08/20/2024 10/15/2023, 07/23/2023 INFLUENZA VACCINE (Season Ended) 2025 ZOSTER VACCINE (1 of 2) 2041 HEPATITIS C SCREENING Completed 12/24/2023 HIV SCREENING Completed 12/24/2023 HIB VACCINE Aged Out No longer eligi ble based on patient's age to complete this topic HPV VACCINE Aged Out No longer eligi ble based on patient's age to complete this topic MENINGOCOCCAL (Group B) VACCINE SHARED DECISION-MAKING Aged Out No longer eligible based on patient's age to complete this topic MENINGOCOCCAL GROUPS A/C/Y/W VACCINE Aged Out No longer eligible b ased on patient's age to complete this topic Procedures Procedure Name Priority Date/Time Associated Diagnosis Comments HEPATITIS C AB W/RFLX TO HCV RNA QN PCR Routine 12/24/2023 Screen for STD (sexually transmitted disease) HIV-1 HIV-2 ANTIBODY + HIV P24 AG PANEL Routine 12/24/2023 Screen for STD (sexually transmitted disease) from Last 3 Months or Most Recently Relevant to Health Maintenance Results * HEPATITIS C AB W/RFLX TO HCV RNA QN PCR (12/24/2023) Hepatitis C Antibody NON-REACTI VE NON-REACT ALY[facility]IA [facility] Comment: HCV antibody was non-reactive. There is no laboratory evidence of HCV infection. In most cases, no further action is required. However, if recent HCV exposure is suspected, a test for HCV RNA (test code 18473) is suggested. For additional information please refer to http://Justinmind.[employer]/faq/FWQ62n3 (This link is being provided for informational/ educational purposes only.) Test Performed at: [facility], [facility] ([place]) [id number] RANDA OLSON MD Blood BLOOD SPECIMEN / Unknown 12/24/2023 12/24/2023 1:38 PM CDT Gloria Schneider MD LAB - CHEMISTRY [facility] [address] [place] [address] * HIV-1 HIV-2 ANTIBODY + HIV P24 AG PANEL (12/24/2023) HIV Screen 4th Generation w Reflex NON-REACT ALYSSIA NON-REACT ALYSSIA [facility] Comment: HIV-1 antigen and HIV-1/HIV-2 antibodies were not detected. There is no laboratory evidence of HIV infection. PLEASE NOTE: This information has been disclosed to you from records whose confidentiality may be protected by state law. If your state requires such protection, then the state law prohibits you from making any further disclosure of the information without the specific written consent of the person to whom it pertains, or as otherwise permitted by law. A general authorization for the release of medical or other information is NOT sufficient for this purpose. For additional information please refer to http://Justinmind.[employer]/faq/LUK091 (This link is being provided for informational/ educational purposes only.) The performance of this assay has not been clinically validated in patients less than 2 years old. Test Performed at: [id number] [place], [facility] ([place]) [id number] RANDA OLSON MD Blood BLOOD SPECIMEN / Unknown 12/24/2023 12/24/2023 1:38 PM CDT Gloria Schneider MD LAB - CHEMISTRY [facility] Organization Address City/State/ZIP Co de Phone Number [facility] [address] [place] [address] from Last 3 Months or Most Recently Relevant to Health Maintenance Insurance Payer Benefit Plan / Group Subscriber ID Effective Dates Phone Address Type AETNA AETNA PPO/POS/OA [id number] 01/19/2024-Pres ent [address] [place] [address] PPO [employer] [id number] Effective for all dates [address] [address] [place] [address] HMO [employer] EPO [id number] 08/20/2022-Pres ent [address] [address] [place] [address] HMO [employer] EPO [id number] 08/20/2022-Pres ent [address] [address] [place] [address] HMO [employer] EPO [id number] 08/20/2022-Pres ent [address] [address] [place] [address] HMO [employer] EPO [id number] 08/20/2022-Pres ent [address] [address] [place] [address] HMO [employer] EPO [id number] 08/20/2022-Pres ent [address] [address] [place] [address] HMO [employer] EPO [id number] 08/20/2022-Pres ent [address] [address] [place] [address] HMO [employer] EPO [id number] 08/20/2022-Pres ent [address] [address] [place] [address] HMO [employer] EPO [id number] 08/20/2022-Pres ent [address] [address] [place] [address] [employer]MO [employer] E[employer] [id number] 08/20/2022-Pres ent [address] [address] [place] [address] HMO [employer] EPO [id number] 08/20/2022-Pres ent [address] [address] [place] [address] HMO [employer] EPO [id number] 08/20/2022-Pres ent [address] [address] [place] [address] [facility] MEDICAID [id number] Effective for all dates ATTN CLAIMS DEPARTMENT [address] [place] [address] Medicaid Managed Care [employer] E[employer] [id number] 08/20/2022-Pres ent [address] [address] [place] [address] [facility] MEDICAID [id number] Effective for all dates ATTN CLAIMS DEPARTMENT [address] [place] [address] Medicaid Managed Care [employer] EPO [id number] 08/20/2022-Pres ent [address] [address] [place] [address] [facility] MEDICAID [id number] Effective for all dates ATTN CLAIMS DEPARTMENT [address] [place] [address] Medicaid Managed Care [employer] E[employer] [id number] 08/20/2022-Pres ent [address] [address] [place] [address] [facility] MEDICAID [id number] Effective for all dates ATTN CLAIMS DEPARTMENT [address] [place] [address] Medicaid Managed Care [employer] E[employer] [id number] 08/20/2022-Pres ent [address] [address] [place] [address] [facility] MEDICAID [id number] Effective for all dates ATTN CLAIMS DEPARTMENT [address] [place] [address] Medicaid Managed Care [employer] E[employer] [id number] 08/20/2022-Pres ent [address] [address] [place] [address] [facility] MEDICAID [id number] Effective for all dates 132 [employer] CLAIMS DEPARTMENT [address] [place] [address] Medicaid Managed Care [employer] E[employer] [id number] 08/20/2022-Pres ent [address] [address] [place] [address] [facility] MEDICAID [id number] Effective for all dates 132 [employer] CLAIMS DEPARTMENT [address] [place] [address] Medicaid Managed Care [employer] EPO [id number] 08/20/2022-Pres ent [address] [address] [place] [address] [facility] MEDICAID [id number] Effective for all dates 132 [employer] CLAIMS DEPARTMENT [address] [place] [address] Medicaid Managed Care [employer] EPO [id number] 08/20/2022-Pres ent [address] [address] [place] [address] [facility] MEDICAID [id number] Effective for all dates 132 [employer] CLAIMS DEPARTMENT [address] [place] [address] Medicaid Managed Care [employer] EPO [id number] 08/20/2022-Pres ent [address] [address] [place] [address] [facility] MEDICAID [id number] Effective for all dates 132 [employer] CLAIMS DEPARTMENT [address] [place] [address] Medicaid Managed Care [employer] EPO [id number] 08/20/2022-Pres ent [address] [address] [place] [address] [facility] MEDICAID [id number] Effective for all dates 132 [employer] CLAIMS DEPARTMENT [address] [place] [address] Medicaid Managed Care [employer] EPO [id number] 08/20/2022-Pres ent [address] [address] [place] [address] [facility] MEDICAID [id number] Effective for all dates 132 [employer] CLAIMS DEPARTMENT [address] [place] [address] Medicaid Managed Care [employer] E[employer] [id number] 08/20/2022-Pres ent [address] [address] [place] [address] [facility] MEDICAID [id number] Effective for all dates 132 ATTN CLAIMS DEPARTMENT [address] [place] [address] Medicaid Managed Care [employer] E[employer] [id number] 08/20/2022-Pres ent [address] [address] [place] [address] [facility] MEDICAID [id number] Effective for all dates 132 [employer] CLAIMS DEPARTMENT [address] [place] [address] Medicaid Managed Care [employer] [id number] 10/18/2021-Pres ent [address] [address] [place] [address] [facility] MEDICAID [id number] Effective for all dates 132 [employer] CLAIMS DEPARTMENT [address] [place] [address] Medicaid Managed Care [employer] [id number] 10/18/2021-Pres ent [address] [address] [place] [address] [facility] MEDICAID [id number] Effective for all dates 132 ATT[employer] CLAIMS DEPARTMENT [address] [place] [address] Medicaid Managed Care [employer] [id number] 10/18/2021-Pres ent [address] [address] [place] [address] [facility] MEDICAID [id number] Effective for all dates - 132 [employer] CLAIMS DEPARTMENT [address] [place] [address] Medicaid Managed Care [employer] [id number] 10/18/2021-Pres ent [address] [address] [place] [address] [facility] MEDICAID [id number] Effective for all dates 132 [employer] CLAIMS DEPARTMENT [address] [place] [address] Medicaid Managed Care [employer] [id number] 10/18/2021-Pres ent [address] [address] [place] [address] [facility] MEDICAID [id number] Effective for all dates 132 [employer] CLAIMS DEPARTMENT [address] [place] [address] Medicaid Managed Care [employer] [id number] 10/18/2021-Pres ent [address] [address] [place] [address] [facility] MEDICAID [id number] Effective for all dates - 132 [employer] CLAIMS DEPARTMENT [address] [place] [address] Medicaid Managed Care [employer] [id number] 10/18/2021-Pres ent [address] [address] [place] [address] [facility] MEDICAID [id number] Effective for all dates - 132 [employer] CLAIMS DEPARTMENT [address] [place] [address] Medicaid Managed Care [employer] [id number] 10/18/2021-Pres ent [address] [address] [place] [address] [facility] MEDICAID [id number] Effective for all dates 132 ATT[employer] CLAIMS DEPARTMENT [address] [place] [address] Medicaid Managed Care [employer] [id number] 10/18/2021-Pres ent [address] [address] [place] [address] [facility] MEDICAID [id number] Effective for all dates 132 ATT[employer] CLAIMS DEPARTMENT [address] [place] [address] Medicaid Managed Care [employer] [id number] 10/18/2021-Pres ent [address] [address] [place] [address] [facility] MEDICAID [id number] Effective for all dates 132 [employer] CLAIMS DEPARTMENT [address] [place] [address] Medicaid Managed Care [employer] [id number] 10/18/2021-Pres ent [address] [address] [place] [address] [facility] MEDICAID [id number] Effective for all dates 132 [employer] CLAIMS DEPARTMENT [address] [place] [address] Medicaid Managed Care [employer] [id number] 10/18/2021-Pres ent [address] [address] [place] [address] [facility] MEDICAID [id number] Effective for all dates 132 ATT[employer] CLAIMS DEPARTMENT [address] [place] [address] Medicaid Managed Care [employer] [id number] 10/18/2021-Pres ent [address] [address] [place] [address] [facility] MEDICAID [id number] Effective for all dates 132 ATTN CLAIMS DEPARTMENT [address] [place] [address] Medicaid Managed Care [employer] [id number] 10/18/2021-Pres ent [address] [address] [place] [address] [facility] MEDICAID [id number] Effective for all dates 877 132 [employer] CLAIMS DEPARTMENT [address] [place] [address] Medicaid Managed Care [employer] [id number] 10/18/2021-Pres ent [address] [address] [place] [address] [facility] MEDICAID [id number] Effective for all dates 877 132 [employer] CLAIMS DEPARTMENT [address] [place] [address] Medicaid Managed Care [employer] [id number] 10/18/2021-Pres ent [address] [address] [place] [address] [facility] MEDICAID [id number] Effective for all dates 877 132 [employer] CLAIMS DEPARTMENT [address] [place] [address] Medicaid Managed Care [employer] [id number] 10/18/2021-Pres ent [address] [address] [place] [address] [facility] MEDICAID [id number] Effective for all dates 877- 132 [employer] CLAIMS DEPARTMENT [address] [place] [address] Medicaid Managed Care [employer] [id number] 10/18/2021-Pres ent [address] [address] [place] [address] [facility] MEDICAID [id number] Effective for all dates [id number] [employer] CLAIMS DEPARTMENT [address] [place] [address] Medicaid Managed Care [employer] E[employer] [id number] 08/20/2022-Pres ent [address] [address] [place] [address] HMO Advance Directives * Full Code (Latest Code Status on File) Date Activated Date Inactivated Comments 06/05/2021 6:44 PM 06/07/2021 1:53 PM Care Teams Animal Care Service Worker Relationship Specialty Start Date End Date Va Booker MD [address] [place] [address] PCP - General 10/19/22
--- OUTSIDE RECORDS SUMMARY | 2024-11-25 17:41 | XMS_ITS | Encounter Summary ---
Author Organization [facility] Address [address] [place] [address] Care Team Providers Care Bridge Design Engineer Name Role Phone Va Booker MD Primary Care Provider [phone] Ashley Bedoya Unavailable Ashley Bedoya Primary Care Provider [phone] Va Booker MD Primary Care Provider [phone] Va Booker MD Unavailable Ashley Bedoya Unavailable Reason for Visit * Reason Onset Date Comments MEDICATION REFILL 09/26/2021 Encounter Details Date Type Department Care Team (Late st Contact Info) Description 09/26/2021 Refill [facility] [address] [place] [address] Briana Enamorado MD Need new address MEDICATION REFILL Social History Tobacco Use Types Packs/Day Years Used Date Smoking Tobacco: Never Smokeless Tobacco: Never Alcohol Use Standard Drinks/Week Comments Not Currently 4 (1 standard drink = 0.6 oz pur e alcohol) AUDIT-C Answer Date Recorded Q1: How often do you have a drink containing alc ohol? Never 07/22/2021 Q2: How many drinks containi ng alcohol do you have on a typical day when you are drinking? 1 or 2 07/22/2021 Q3: How often do you have six or more drinks on one occasion? Never 07/22/2021 Sex and Gender Information Value Date Recorded [...] No 06/05/2021 documented as of this encounter Miscellaneous Notes * Telephone Encounter - Fidelia Erwin RN - 09/26/2021 3:21 PM BARN OPERATOR Refill denied for Neurontin as patient should have sufficient refills. Last refill, 08/2021 for oneyear supply.. OPERATOR documented in this encounter Plan of Treatment Not on file documented as of this encounter Visit Diagnoses Not on filedocumented in this encounter Care Teams Bridge Design Engineer Relationship Specialty Start Date End Date Va Booker MD [address] [place] [address] PCP - General 04/03/19 05/30/22 Ashley Bedoya PA [address] [place] [address] PCP - Attributed-[employer] [place] 10/18/21 12/17/22 Ashley Bedoya PA [address] [place] [address] PCP - General 05/31/22 10/18/22 Va Booker MD [address] [place] [address] PCP - General 10/19/22 Va Booker MD [address] [place] [address] PCP - Attributed[facility] [place] 12/18/22 09/19/23 Ashley Bedoya PA [address] [place] [address] PCP - Attributed-[employer] [place] 09/20/23 02/05/24 documented as of this encounter
[2024-11-25 18:17] LABS: INR 1.1; Partial Thromboplastin Time 29.8 Seconds (22.3-36.8); Prothrombin Time 14.3 Seconds (11.1-14.7)
== END 2024-11-25 17:38 | disposition home or self-care (01) ==
LOC: ANHLAB 17:39
PROVIDERS: PCP Family Medicine; Visit Provider Urology
DX: N20.0 Calculus of kidney (principal)
CPT/HCPCS: 36415; 85610; 85730; 87086

== ENCOUNTER 2024-11-28 00:28 | Day surgery (SDC) | payer OTHER, SELFPAY ==
[2024-11-25 11:10] VITALS: BMI 20.6
--- NOTE | 2024-11-25 11:11 | PC.NURSE ---
Report to the Outpatient Waiting Room, entrance under the green pavilion located off [facility], at time _0800_ on date _[id number]_. Planned Procedure Time: _1000_.? Time changes happen often and if your time is changed the preop area will call you the afternoon before. - You and your visitor will be asked to self-screen and do not enter if you have any COVID symptoms. Please call surgeon if you need to reschedule. - A mask is optional within the hospital at this time. Patients may have clear liquids (water, carbonated beverages, clear teas, apple juice) until 3 hours prior to surgery with a maximum of 20 ounces. - No food from midnight until time of surgery and no smoking, or chewing tobacco (or any form of nicotine). No chewing gum, candy or mints. Take only the following medications with a SIP of water on the morning of surgery: ___Topamax____ DO NOT STOP ANY OF YOUR OTHER PRESCRIPTION MEDICATIONS PRIOR TO SURGERY EXCEPT THE FOLLOWING Hold all vitamins and supplements for 3 days per anesthesiologist. Medications to discontinue per physician Date to take last dose Please no make-up, nail czech, hairspray, perfume, deodorant, or body powder the day of surgery.? No jewelry (including any body piercings) or valuables the day of surgery, leave them at home.? Please take a shower or bath the night before, or the morning of, surgery with an antibacterial soap.? Wear comfortable, loose fitting clothing.? - Jewelry must be removed prior to entering the operating room.? Rings and piercings that are not removed may be cut off. - The hospital will not accept responsibility for valuables.? - Please leave all valuables, including medications, at home the day of surgery. If you are going home after surgery, a licensed jitney driver must drive you home.? - NO public transportation without another adult if you receive anesthesia. - We recommend that an adult stay with you for 24 hours following discharge. - We also recommend that you do not drive, make important decision, drink alcoholic beverages, or take any drugs that were not prescribed by your health care provider for at least 24 hours after your discharge time. Follow any additional instructions given to you from your surgeon. Telephone instructions given to __Juliette___and asked if any additional questions and then verbalized understanding. Patient advised to call surgeon office or pre surgery nurse liaison [phone] if any additional questions.
[2024-11-28] VITALS (7 sets, daily range): BP systolic 94–109; BP diastolic 45–69; PULSE 62–82; RESP 12–19; TEMP 36.2–37; O2SAT 100; BMI 20.2
--- NOTE | ~2024-11-28 | XR_ITS ---
XR abdomen/kub 1V 11/28/2024 08:17 Indication: Right renal stones Procedure: KUB Comparison: No prior studies for comparison. Findings: There is a right renal stone at the L2 level. Bowel gas pattern nonobstructive. Moderate co lonic fecal loading. There are pelvic phleboliths. No acute osseous abnormality. Lung bases unremarka ble Impression: 1: Right nephrolithiasis. Reviewed, dictated and finalized at location A. Impression: 1: Right nephrolithiasis.
--- OUTSIDE RECORDS SUMMARY | 2024-11-28 00:31 | XMS_ITS | Clinical Summary ---
Author Organization [facility] [employer] Address [address] [place] [address] Care Team Providers Care Lathe Tender Name Role Phone Va Booker MD Primary Care Provider [phone] Source Comments [facility] [employer],non-owned Affiliates and Associated Physician Practices is amultiple site organization consisting of ambulatory clinics and hospital sitesin [place], [place], [place] and [place]. This disclosure is being madepursuant to the Care Everywhere program and may not contain all information available regarding this patient. Last updated 18.[facility] [employer] Allergies No known active allergies Medications * [...] Cancer - Breast Maternal Aunt Other - Qa Consultant Maternal Aunt Vulvar Cancer Cancer - Prostate [...] a test for HCV RNA (test code 07066) is suggested. For additional information please refer to http://[employer]/faq/ZFQ46t7 (This link is being provided for informational/ educational purposes only.) Test Performed at: [facility], [place] [address] RANDA OLSON MD Blood BLOOD SPECIMEN / Unknown 12/24/2023 12/24/2023 1:38 PM CDT Gloria Schneider MD LAB - CHEMISTRY [facility] [address] [place] [address] * HIV-1 HIV-2 ANTIBODY + HIV P24 [...] purpose. For additional information please refer to http://[employer]/faq/HJM049 (This link is being provided for informational/ educational purposes only.) The performance of this assay has not been clinically validated in patients less than 2 years old. Test Performed at: [facility] [id number], [place] [address] RANDA OLSON MD Blood BLOOD SPECIMEN / Unknown 12/24/2023 12/24/2023 1:38 PM CDT Gloria Schneider MD LAB - CHEMISTRY FRANKI [facility] Organization Address City/State/ZIP Co de Phone Number [address] [address] [place] [address] from Last 3 Months or Most Recently Relevant to Health Maintenance Insurance Payer Benefit Plan / Group Subscriber ID Effective Dates Phone Address Type AETNA AETNA PPO/POS/OA [id number] 01/19/2024-Pres ent [address] [place] [address] PPO [employer] [facility] [employer] [id number] Effective for all dates [address] [address] [place] [address] HMO [employer] EPO [id number] 08/20/2022-Pres ent [address] [address] [place] [address] HMO [employer] EPO [id number] 08/20/2022-Pres ent [address] [address] [place] [address] HMO [employer] EPO [id number] 08/20/2022-Pres ent [address] [address] [place] [address] HMO [employer] EPO [id number] 08/20/2022-Pres ent [address] [address] [place] [address] HMO [employer] EPO [id number] 08/20/2022-Pres ent [address] [address] [place] [address] HMO [employer] EPO [id number] 08/20/2022-Pres ent [address] [address] [place] [address] HMO [employer] EPO [id number] 08/20/2022-Pres ent [address] [address] [place] [address] HMO [employer] EPO [id number] 08/20/2022-Pres ent [address] [address] [place] [address] HMO [employer] EPO [id number] 08/20/2022-Pres ent [address] [address] [place] [address] HMO [employer] EPO [id number] 08/20/2022-Pres ent [address] [address] [place] [address] HMO [employer] EPO [id number] 08/20/2022-Pres ent [address] [address] [place] [address] [facility] MEDICAID [id number] Effective for all dates ATTN CLAIMS DEPARTMENT [address] [place] [address] Medicaid Managed Care [employer] EPO [id number] 08/20/2022-Pres ent [address] [address] [place] [address] [facility] MEDICAID [id number] Effective for all dates ATTN CLAIMS DEPARTMENT [address] [place] [address] Medicaid Managed Care [employer] EPO [id number] 08/20/2022-Pres ent [address] [address] [place] [address] [facility] MEDICAID [id number] Effective for all dates ATTN CLAIMS DEPARTMENT [address] [place] [address] Medicaid Managed Care [employer] EPO [id number] 08/20/2022-Pres ent [address] [address] [place] [address] [facility] MEDICAID [id number] Effective for all dates ATTN CLAIMS DEPARTMENT [address] [place] [address] Medicaid Managed Care [employer] EPO [id number] 08/20/2022-Pres ent [address] [address] [place] [address] [facility] MEDICAID [id number] Effective for all dates ATTN CLAIMS DEPARTMENT [address] [place] [address] Medicaid Managed Care [employer] EPO [id number] 08/20/2022-Pres ent [address] [address] [place] [address] [facility] MEDICAID [id number] Effective for all dates 132 ATTN CLAIMS DEPARTMENT [address] [place] [address] Medicaid Managed Care [employer] EPO [id number] 08/20/2022-Pres ent [address] [address] [place] [address] [facility] MEDICAID [id number] Effective for all dates 132 ATTN CLAIMS DEPARTMENT [address] [place] [address] Medicaid Managed Care [employer] EPO [id number] 08/20/2022-Pres ent [address] [address] [place] [address] [facility] MEDICAID [id number] Effective for all dates 132 ATTN CLAIMS DEPARTMENT [address] [place] [address] Medicaid Managed Care [employer] EPO [id number] 08/20/2022-Pres ent [address] [address] [place] [address] [facility] MEDICAID [id number] Effective for all dates 132 ATTN CLAIMS DEPARTMENT [address] [place] [address] Medicaid Managed Care [employer] EPO [id number] 08/20/2022-Pres ent [address] [address] [place] [address] [facility] MEDICAID [id number] Effective for all dates 132 ATTN CLAIMS DEPARTMENT [address] [place] [address] Medicaid Managed Care [employer] EPO [id number] 08/20/2022-Pres ent [address] [address] [place] [address] [facility] MEDICAID [id number] Effective for all dates 132 ATTN CLAIMS DEPARTMENT [address] [place] [address] Medicaid Managed Care [employer] EPO [id number] 08/20/2022-Pres ent [address] [address] [place] [address] [facility] MEDICAID [id number] Effective for all dates 132 ATTN CLAIMS DEPARTMENT [address] [place] [address] Medicaid Managed Care [employer] EPO [id number] 08/20/2022-Pres ent [address] [address] [place] [address] [facility] MEDICAID [id number] Effective for all dates 132 ATTN CLAIMS DEPARTMENT [address] [place] [address] Medicaid Managed Care [employer] EPO [id number] 08/20/2022-Pres ent [address] [address] [place] [address] [facility] MEDICAID [id number] Effective for all dates 132 ATTN CLAIMS DEPARTMENT [address] [place] [address] Medicaid Managed Care [employer] [facility] [id number] 10/18/2021-Pres ent [address] [address] [place] [address] [facility] MEDICAID [id number] Effective for all dates 132 ATTN CLAIMS DEPARTMENT [address] [place] [address] Medicaid Managed Care [employer] [facility] [employer] [id number] 10/18/2021-Pres ent [address] [address] [place] [address] [facility] MEDICAID [id number] Effective for all dates 132 ATTN CLAIMS DEPARTMENT [address] [place] [address] Medicaid Managed Care [employer] [facility] [employer] [id number] 10/18/2021-Pres ent [address] [address] [place] [address] [facility] MEDICAID [id number] Effective for all dates - 132 ATTN CLAIMS DEPARTMENT [address] [place] [address] Medicaid Managed Care [employer] [facility] [employer] [id number] 10/18/2021-Pres ent [address] [address] [place] [address] [facility] MEDICAID [id number] Effective for all dates 132 ATTN CLAIMS DEPARTMENT [address] [place] [address] Medicaid Managed Care [employer] [facility] [employer] [id number] 10/18/2021-Pres ent [address] [address] [place] [address] [facility] MEDICAID [id number] Effective for all dates 132 ATTN CLAIMS DEPARTMENT [address] [place] [address] Medicaid Managed Care [employer] [facility] [employer] [id number] 10/18/2021-Pres ent [address] [address] [place] [address] [facility] MEDICAID [id number] Effective for all dates - 132 ATTN CLAIMS DEPARTMENT [address] [place] [address] Medicaid Managed Care [employer] [facility] [id number] 10/18/2021-Pres ent [address] [address] [place] [address] [facility] MEDICAID [id number] Effective for all dates - 132 ATTN CLAIMS DEPARTMENT [address] [place] [address] Medicaid Managed Care [employer] [facility] [employer] [id number] 10/18/2021-Pres ent [address] [address] [place] [address] [facility] MEDICAID [id number] Effective for all dates 132 ATTN CLAIMS DEPARTMENT [address] [place] [address] Medicaid Managed Care [employer] [facility] [employer] [id number] 10/18/2021-Pres ent [address] [address] [place] [address] [facility] MEDICAID [id number] Effective for all dates 132 ATTN CLAIMS DEPARTMENT [address] [place] [address] Medicaid Managed Care [employer] [facility] [employer] [id number] 10/18/2021-Pres ent [address] [address] [place] [address] [facility] MEDICAID [id number] Effective for all dates 132 ATTN CLAIMS DEPARTMENT [address] [place] [address] Medicaid Managed Care [employer] [facility] [employer] [id number] 10/18/2021-Pres ent [address] [address] [place] [address] [facility] MEDICAID [id number] Effective for all dates 132 ATTN CLAIMS DEPARTMENT [address] [place] [address] Medicaid Managed Care [employer] [facility] [employer] [id number] 10/18/2021-Pres ent [address] [address] [place] [address] [facility] MEDICAID [id number] Effective for all dates 132 ATTN CLAIMS DEPARTMENT [address] [place] [address] Medicaid Managed Care [employer] [facility] [employer] [id number] 10/18/2021-Pres ent [address] [address] [place] [address] [facility] MEDICAID [id number] Effective for all dates 132 ATTN CLAIMS DEPARTMENT [address] [place] [address] Medicaid Managed Care [employer] [facility] [employer] [id number] 10/18/2021-Pres ent [address] [address] [place] [address] [facility] MEDICAID [id number] Effective for all dates 877 132 ATTN CLAIMS DEPARTMENT [address] [place] [address] Medicaid Managed Care [employer] [facility] [id number] 10/18/2021-Pres ent [address] [address] [place] [address] [facility] MEDICAID [id number] Effective for all dates 877 132 ATTN CLAIMS DEPARTMENT [address] [place] [address] Medicaid Managed Care [employer] [facility] [employer] [id number] 10/18/2021-Pres ent [address] [address] [place] [address] [facility] MEDICAID [id number] Effective for all dates 877 132 ATTN CLAIMS DEPARTMENT [address] [place] [address] Medicaid Managed Care [employer] [facility] [employer] [id number] 10/18/2021-Pres ent [address] [address] [place] [address] [facility] MEDICAID [id number] Effective for all dates 877- 132 ATTN CLAIMS DEPARTMENT [address] [place] [address] Medicaid Managed Care [employer] [facility] [employer] [id number] 10/18/2021-Pres ent [address] [address] [place] [address] [facility] MEDICAID [id number] Effective for all dates [phone] ATTN CLAIMS DEPARTMENT [address] [place] [address] Medicaid Managed Care [employer] EPO [id number] 08/20/2022-Pres ent [address] [address] [place] [address] HMO Advance Directives * Full Code (Latest Code Status on File) Date Activated Date Inactivated Comments 06/05/2021 6:44 PM 06/07/2021 1:53 PM Care Teams Lathe Tender Relationship Specialty Start Date End Date Va Booker MD [address] [place] [address] PCP - General 10/19/22
--- OUTSIDE RECORDS SUMMARY | 2024-11-28 00:31 | XMS_ITS | Clinical Summary ---
[facility] Organization [facility] [place] [facility] [place] Address [address] [place] [address] Phone Care Team Providers Care Infrastructure Tech Name Role Phone Unavailable Primary Care Provider Unavailabl e Social History Tobacco Use Types Packs/Day Years Used Date Smoking Tobacco: Never Assessed Comments Unknown Sex and Gender Information Value Date Recorded Sex Assigned at Not on file Legal Sex Female 5:10 AM DECKHAND Gender Identity Not on file Sexual Orientation [...]
--- OUTSIDE RECORDS SUMMARY | 2024-11-28 00:32 | XMS_ITS | Patient Health Record ---
Author Organization [facility] Address [address] [place] [address] Support Name Relationship Address Phone Chantell Vera Emergency Contact Unknown Juliette Sigala Guarantor Unknown [phone] REASON FOR REFERRAL No Information MEDICATIONS Medication SIG (Take, Route, Frequency, Duration) Notes Start Date End Date Status Sprintec 28 0.25-35 MG-MCG 1 tab(s) oral ly once a day for 84 10/31/2013 Active PROBLEMS Problem Type ICD Code Onset Dates Problem Status W/U Status Risk SNOMED Code Notes Problem Asthma NOS (493.90) Active confirmed Low Asthma (238026430) Problem CONTRACEPT PILL SURVEILL (V25.41) Active confirmed Surveillance of oral contraception done (514108607357626) Problem HPV Special screening exam (V73.81) Active confirmed Problem Dyspareunia (female) (625.0) Active confirmed Pain in female genitalia on intercourse (29813963) PLAN OF TREATMENT No Information Insurance Providers Payer Name Payer Address Payer Phone Subscriber Number Group Number Insured Name Patient Relationship to Insured Coverage Start Date Coverage End Date [employer] ACCOUNTS PAYABLE [address] [address] [place] [id number] Juliette Sigala Self - patient is the insured MEDICAL (GENERAL) HISTORY Medical History History ICD Code exertional asthma-only flare with uri, n o albuterol currently heart murmur Surgical History Surgery Date(Month/Year) Harvest Teeth
--- OUTSIDE RECORDS SUMMARY | 2024-11-28 00:32 | XMS_ITS | Data Portability ---
[facility] Address [address] [place] [address] Assessment No assessment recorded. Plan of Treatment Reminders Order Date Submit Date Provider Last Modified By Organization Details Last Modified Time Details Appointments None recorded. Lab None recorded. Referral None recorded. Procedures None recorded. Surgeries None recorded. Imaging None recorded. Medication Orders prednisone 20 mg tablet 2015 016 [id number], [address], [id number], 6 15:20:00 Patient TargetsNo targets recorded. Patient InstructionsNo instructions recorded. Reason for Referral None Reported. Problems Name Problem SNOMED Code Status Onset Date Resolution Date Notes Provider Name and Address Organization Details Recorded Time Upper respiratory infection 44787886 Active Elisabeth robins [facility] 6 15:20:00 Allergic reaction 533558535 Active Elisabeth robins [facility] 6 15:30:32 Problem Notes None recorded. Procedures Surgical History Date Name Laterality Status Provider Name and Address Organization Details Recorded Time Other completed Elisabeth Rosie [facility] 01/19 15:20:00 Imaging Results None recorded. Procedure Notes None recorded. Medical Equipment None Reported. Allergies Allergen ID Allergen Name Allergen Category Reaction Reaction Severity Criticality Documentation Date Start Date Code Code System Note Provider Name and Address Organization Details Recorded Time 87766 prednisol one medicatio n other Not available [...] 6 76 /min 18 /min 97.9 [degF] 73208.3 0729 g 20.1 kg/m2 162.56 cm 104 mm[Hg] 70 mm[Hg] Opal Gonzalez [facility] 6 16:18:51 Date Recorded Body height Body mass index (BMI) Body weight Systolic blood pressure Diastolic blood pressure Provider Name and Address Organization Details Last Updated DateTime 01/20/2016 161.29 cm 20.7 kg/m2 11055.49 203 g 96 mm[Hg] 58 mm[Hg] Elisabeth Finchoten [facility] 6 15:20:00 Social History None recorded. Functional Status None recorded. Mental Status None recorded. Family History Nothing Reported. Medical History Condition Response Coronary Artery Disease N Other N High Blood Pressure N Atrial Fibrillation N Thyroid Problems N Kidney or Bladder Problems N GI Problems N Depression N COPD N Blood Clots N Skin Problems N Anemia N Heart Attack ([place]) N Diabetes N Anxiety Disorder N Muscle, Joint, or Bone Problems N Seizures/Epilepsy N Acid Reflux (GERD) N Cancer N Stroke N Asthma N Allergies N High Cholesterol N Hepatitis N Liver Disease N Headaches N Osteoporosis N Heart Failure N Gynecological HistoryNo gynecological history recorded. Obstetrics History GPAL:G 0 P 0 0 0 0 Past Encounters Encounter ID Performer Location Encounter Start Date Encounter Closed Date Diagnosis/Indication Diagnosis SNOMED-CT Code Diagnosis ICD10 Code Diagnosis Note [id number] Walter Cárdenas MD [facility] [address] [place] [address] 01/18/2016 15:32:59 01/18/2016 17:09:13 Upper respiratory infection 67211682 J06.9 [id number] Walter Cárdenas MD [facility] [address] [place] [address] 01/20/2016 15:15:37 01/20/2016 15:40:07 Allergic reaction 696267047 T78.40XA Health Concerns Section Related Observation LastModified by Organization Detai ls LastModified Time None Recorded Concern Status LastModified by Organization Details LastModified Time None Recorded Advance Directives Directive None Recorded Payers Encounter Date Sequence Insurance Name Policy Number Policy Whiteside Covered Member ID Whiteside Member ID Guarantor Name 01/18/2016 1 [facility] [id number] Juliette Beckwith [id number] Juliette Sigala 01/20/2016 1 [facility] [id number] Juliette Beckwith [id number] Juliette Sigala OBGyn Episode No OBEpisode recorded.
--- OUTSIDE RECORDS SUMMARY | 2024-11-28 00:32 | XMS_ITS | Encounter Summary ---
Author Organization [facility] Address [address] [place] [address] Care Team Providers Care Dough Scaler And Mixer Name Role Phone Va Booker MD Primary Care Provider [phone] Ashley Bedoya Unavailable Ashley Bedoya Primary Care Provider [phone] Va Booker MD Primary Care Provider [phone] Va Booker MD Unavailable Ashley Bedoya Unavailable Reason for Visit * Reason Onset Date Comments MEDICATION REFILL 09/26/2021 Encounter Details Date Type Department Care Team (Late st Contact Info) Description 09/26/2021 Refill [facility] [address] [place] [address] Briana Enamorado MD Need new address MEDICATION [...] Fidelia Erwin RN - 09/26/2021 3:21 PM MICROBIOLOGICAL LABORATORY TECHNICIAN Refill denied for Neurontin as patient should have sufficient refills. Last refill, 08/2021 for oneyear supply.. OBIOLOGICAL LABORATORY TECHNICIAN documented in this encounter Plan of Treatment Not on file documented as of this encounter Visit Diagnoses Not on filedocumented in this encounter Care Teams Dough Scaler And Mixer Relationship Specialty Start Date End Date Va Booker MD [address] [place] [address] PCP - General 04/03/19 05/30/22 Ashley Bedoya PA [address] [place] [address] PCP - Attributed-[employer] PA 10/18/21 12/17/22 Ashley Bedoya PA [address] [place] [address] PCP - General 05/31/22 10/18/22 Va Booker MD [address] [place] [address] PCP - General 10/19/22 aV Booker MD [address] [place] [address] PCP - Attributed[facility] [place] 12/18/22 09/19/23 Ashley Bedoya PA [address] [place] [address] PCP - Attributed[facility] [place] 09/20/23 02/05/24 documented as of this encounter
--- OUTSIDE RECORDS SUMMARY | 2024-11-28 00:32 | XMS_ITS | Encounter Summary ---
Author Organization [facility] Address [address] [place] [address] Care Team Providers Care Banking Analyst Name Role Phone Va Booker MD Primary Care Provider [phone] Va Booker MD Unavailable Ashley Bedoya Unavailable Reason for Visit * Reason Onset Date Comments MEDICATION REFILL 05/21/2023 Encounter Details Date Type Department Care Team (Late st Contact Info) Description 05/21/2023 Refill [facility] - Neurology [address] [place] [address], [place] [address] Alley Colvin MD [address] [place] [address] [place] [address] MEDICATION REFILL Social History Tobacco [...] migrainosus documented in this encounter Care Teams Banking Analyst Relationship Specialty Start Date End Date Va Booker MD [address] [place] [address] PCP - General 10/19/22 Va Booker MD [address] [place] [address] PCP - Attributed[facility] [place] 12/18/22 09/19/23 Ashley Bedoya PA [address] [place] [address] PCP - Attributed[facility] 09/20/23 02/05/24 documented as of this encounter
--- NOTE | 2024-11-28 06:24 | WPDHPUPDATE1 ---
History and Physical Update Update Date/Time: 11/28/24 06:24 History and Physical has been reviewed, including an updated exam of the patient. There are NO changes in the patient's condition. Risks, benefits, and alternatives have been discussed and questions answered. Patient agrees to proceed with procedure.
[2024-11-28] MEDS: LACTATED RINGERS 1,000 ML 30 ML IV CONT (08:30)
--- NOTE | 2024-11-28 08:57 | WPDANESEPPF ---
Anes - Initial Pre Proc Eval Procedure: Operation Date: 11/28/24 10:00 Proposed Procedures p Right Extracorporeal Shock Wave Lithotripsy - Cy Real MD Date/Time: 11/28/24 08:57 Surgeon: Cy Real MD Pre Op Diagnosis: right renal stones Patient Data Age: 34 Gender: F Height: 1.63 m Weight: 53.5 kg Last Vital Signs Temp 37.0 C 11/28/24 08:22 Pulse 68 11/28/24 08:22 Resp 16 11/28/24 08:22 BP 96/52 L 11/28/24 08:22 Pulse Ox 100 11/28/24 08:22 Allergies Allergy/AdvReac Type Severity Reaction Status Date / Time No Known Allergies Allergy Verified 11/28/24 08:44 Home Medications ?Medication ?Instructions ?Recorded ?Confirmed ?Type sertraline 100 mg tablet 100 mg PO DAILY #30 tabs 11/04/24 11/28/24 Rx topiramate 50 mg tablet 50 mg PO Q12H 11/25/24 11/28/24 History Patient hx anesthesia problems: post op nausea/vomiting Family hx anesthesia problems: none Results Review: All pre-operative results and documents have been reviewed as part of the pre-operative evaluation. [facility] Past Medical History Medical History Tendinitis of left flexor hallucis longus Impingement of left ankle joint Anxiety Depression Asthma Wears glasses Chronic headaches Flat foot [pes planus] (acquired), left foot Posterior tibial tendon dysfunction (PTTD) of left lower extremity Endometriosis Healthy adult Surgical History Surgical History History of laparoscopy H/O: hysterectomy History of appendectomy Family History Family History Grandparent Diabetes mellitus Malignant neoplasm of prostate Other Heart disease Social History Social History Smoking status: Never smoker Second hand tobacco smoke exposure: No Alcohol intake: current Substance use: current Substance use type: marijuana Other substance usage details: smokes marijuana 2-3 times daily Lack of Transportation: No Lack of Food: Never True Current Housing: I Have Housing Concerned About Future Housing: No Difficulty Paying Gas/Electric Bills: No Difficulty Paying for Meds: No Currently Unemployed: No Education: Associate Degree Difficulty w/ Childcare or Family Care: No Living arrangements: with family Gender identity (if verbalized by the patient): Female Spiritual care concerns: No Agree to blood products: Yes Anes - Eval Final PreProcedure Day of Procedure 11/28/24 08:57 Patient weight: normal Heart: regular rate and rhythm Lungs: clear to auscultation Airway: Mallampati scale class II Neurological: alert and oriented Last oral intake: >/= 8 hours ASA classification: II Emergent: no Anesthetic plan: proceed Anesthesia type and monitoring: general LMA and standard monitoring Results Review: All pre-operative results and documents have been reviewed as part of the pre-operative evaluation. Informed Consent: The patient's anesthetic plan and its attendant risks and benefits were discussed with the patient/family/POA. Questions were solicited and answers provided to the satisfaction of the patient/family/POA.
[2024-11-28] MEDS: SCOPOLAMINE 1 MG PATCH 1 PATCH TRANSDERM (09:02)
[2024-11-28] MEDS: ceFAZolin 2 GM/D5W 50 ML 2 GM/50 ML BAG IVPB (09:26)
--- NOTE | 2024-11-28 10:10 | W.PM.PROC2 ---
Procedure Note - Detailed Date of Procedure 11/28/24 Pre-op Diagnosis Right renal stone Post-op Diagnosis Same Procedure Performed Right ESWL Surgeon Cy Real MD Anesthesia General Description of Procedure The patient was brought to the operative suite where she was placed in the supine position on the Dornier lithotripsy table. The focal point of the lithotripter was placed at a 6-7mm right renal calculus. A total of 2500 shocks were delivered at a power setting of 3. There appeared to be good fragmentation of the stone. The patient tolerated the procedure well and was taken to the recovery room in good condition. Drains No Pathology None sent Complications No immediate complications Condition Stable
[2024-11-28] MEDS: oxyCODONE HCL (*CRX) 5 MG TAB IR PO (11:14)
== END 2024-11-28 11:40 | disposition home or self-care (01) ==
PROVIDERS: PCP Family Medicine; Visit Provider Urology
PROC: (CPT 50590; principal; 2024-11-28 10:00)
DX: N20.0 Calculus of kidney (principal); J45.909 Unspecified asthma, uncomplicated; N80.9 Endometriosis, unspecified; F41.9 Anxiety disorder, unspecified; F32.A Depression, unspecified; R51.9 Headache, unspecified; M21.42 Flat foot [pes planus] (acquired), left foot; F12.90 Cannabis use, unspecified, uncomplicated; Z98.890 Other specified postprocedural states; Z80.42 Family history of malignant neoplasm of prostate; Z82.49 Family history of ischemic heart disease and other diseases of the circulatory system
CPT/HCPCS: 50590; 74018; A9270; J0690; J1100; J2003; J2250; J2405; J2704; J3010; J7120

== ENCOUNTER 2024-12-09 14:10 | Outpatient (CLI) | payer OTHER, SELFPAY ==
--- NOTE | ~2024-12-09 | XR_ITS ---
XR abdomen/kub 1V Ordering provider: Cy Real MD History: . calcululs kidney . Comparison: None. FINDINGS: BOWEL: Nonobstructive bowel gas pattern. ORGANOMEGALY: None. SIGNIFICANT PATHOLOGIC CALCIFICATIONS: None. OTHER: No free air is seen under the diaphragm. IMPRESSION: NO ACUTE ABDOMINAL FINDINGS. Reviewed, dictated and finalized at location A.
--- OUTSIDE RECORDS SUMMARY | 2024-12-09 16:20 | XMS_ITS | Clinical Summary ---
Author Organization [facility] [employer] Address [address] [place] [address] Care Team Providers Care Musical Instrument Supervisor Name Role Phone Va Booker MD Primary Care Provider [phone] Source Comments [facility] [employer],non-owned Affiliates and Associated Physician Practices is amultiple site organization consisting of ambulatory clinics and hospital sitesin [place], [place], [place] and [place]. This disclosure is being madepursuant to the Care Everywhere program and may not contain all information available regarding this patient. Last updated 18.[facility] [employer] Allergies No known active allergies Medications * Be aware that medications may not be up to date on this document. Alwaysverify current medications with the patient. onabotulinumtoxi n A (BOTOX) 100 units injectionIndicat ions:Migraine Inject 155 (one hundred fifty five) Units into muscle Every 90 days Reasons: Migraine Headache 2 Each 1 4 Active onabotulinumtoxi n A (Botox) 100 units injectionIndicat ions:Migraine Inject 155 (one hundred fifty five) Units into muscle Every 90 days Reasons: Migraine Headache 2 Each 1 4 Active baclofen (Lioresal) 10 MG tabletIndication s:Cervicogenic headache,Migrain e without aura and without status migrainosus, not intractable,Intr actable chronic migraine without aura and without status migrainosus Take 1 (one) tablet by mouth once daily as needed for Muscle Spasms May cause drowsiness. 30 tablet 2 4 Active topiramate (Topamax) 50 MG tabletIndication s:Cervicogenic headache,Migrain e without aura and without status migrainosus, not intractable Take 1 (one) tablet by mouth 2 times daily 180 tablet 3 4 Active Active Problems Problem Noted Date Diagnosed Date Intractable chronic migraine without aura and without status migrainosus 12/20/2023 Pneumoperitoneum 06/05/2021 Peritonitis 06/05/2021 Status post hysterectomy 06/05/2021 Asthma 03/04/2021 Cervicalgia 03/04/2021 Costochondritis 03/04/2021 Chronic pelvic pain in female 07/07/2019 Immunizations Immunization Administration Dates Next Due Covid Pfizer primary monovalent 12+ yr 0.3mL Pur ple cap 04/19/2021 Family History Medical History Relation Name Comments Cancer - Breast Maternal Aunt Other - Stripper Latex Maternal Aunt Vulvar Cancer Cancer - Prostate [...] Recorded Patient Health Questionnaire-2 Score 2 12/20/2023 Comments No Sex and Gender Information Value Date Recorded Sex Assigned at Female 11/01/2022 2:28 PM CDT 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 For additional information please refer to http://MedHab.HidInImage/faq/[email or web address] (This link is being provided for informational/ educational purposes only.) Test Performed at: [facility] [place] [id number] RANDA OLSON MD Blood BLOOD SPECIMEN / Unknown 12/24/2023 12/24/2023 1:38 PM CDT Gloria Schneider MD LAB - CHEMISTRY ORDERABLES Final Result [facility] [address] [place] [address] * HIV-1 HIV-2 ANTIBODY + HIV P24 AG PANEL (12/24/2023) Pathologist [facility] HIV Screen 4th Generation w Reflex NON-REACT [...] purpose. For additional information please refer to http://[email or web address]/faq/[email or web address] (This link is being provided for informational/ educational purposes only.) The performance of this assay has not been clinically validated in patients less than 2 years old. Test Performed at: [facility] [place] [address] RANDA OLSON MD Blood BLOOD SPECIMEN / Unknown 12/24/2023 12/24/2023 1:38 PM CDT Gloria Schneider MD LAB - CHEMISTRY ORDERABLES Final Result [facility] [address] [place] [address] from Last 3 Months or Most Recently Relevant to Health Maintenance Insurance [employer] [facility] Member Subscriber Plan / Payer (Ef fective 2021-Present) Name:Debra Townsend R Relation to Subscriber:Self Name:DEBRA TOWNSEND Aleksandra Payer ID:Not on file Group ID:[id number] Type:xTVO Address: [address] [facility] Member Subscriber Plan / Payer (Ef fective 2021-Present) Name:Debra Townsend R Relation to Subscriber:Self Name:DEBRA TOWNSEND Payer ID:Not on file Group ID:[id number] Type:O Address: [address] Member Subscriber Plan / Payer (Ef fective for All Dates) Name:Debra Townsend R Relation to Subscriber:Self Name:DEBRA TOWNSEND Payer ID:[id number] (NAIC) Group ID:Not on file Type:Medicaid Managed Care [facility] [address] Member Subscriber Plan / Payer (Ef fective 2021-Present) Name:Debra Townsend R Relation to Subscriber:Self Name:DEBRA TOWNSEND Payer ID:Not on file Group ID:[id number] Type:O Address: [address] Member Subscriber Plan / Payer (Ef fective for All Dates) Name:Debra Townsend Relation to Subscriber:Self Name:DEBRA TOWNSEND Payer ID:[id number] (NAIC) Group ID:Not on file Type:Medicaid Managed Care Address: [employer] DEPARTMENT [address] Member Subscriber Plan / Payer (Ef fective 2021-Present) Name:Debra Townsend R Relation to Subscriber:Self Name:DEBRA TOWNSEND Payer ID:Not on file Group ID:Not on file Type:O Address: [address] Member Subscriber Plan / Payer (Ef fective 2021-Present) Name:Debra Townsend R Relation to Subscriber:Self Name:DEBRA TOWNSEND Aleksandra Payer ID:Not on file Group ID:Not on file Type:[facility] Address: [address] Member Subscriber Plan / Payer (Ef fective for All Dates) Name:Cary Debra R Relation to Subscriber:Self Name:DEBRA TOWNSEND Payer ID:[id number] (NAIC) Group ID:Not on file Type:Medicaid Managed Care Address: [employer]PARTMENT [address] Member Subscriber Plan / Payer (Ef fective 2021-Present) Name:Debra Townsend R Relation to Subscriber:Self Name:CARYDEBRA Aleksandra Payer ID:Not on file Group ID:Not on file Type:O Address: [address] [facility] Member Subscriber Plan / Payer (Ef fective 2021-Present) Name:Debra Townsend R Relation to Subscriber:Self Name:DEBRA TOWNSEND Aleksandra Payer ID:Not on file Group ID:Not on file Type:O Address: [address] [employer] [facility] [place] [address] [employer] [facility] Member Subscriber Plan / Payer (Ef fective 2021-Present) Name:Debra Townsend R Relation to Subscriber:Self Name:DEBRA TOWNSEND Payer ID:Not on file Group ID:Not on file Type:O Address: [address] Member Subscriber Plan / Payer (Ef fective for All Dates) Name:Debra Townsend R Relation to Subscriber:Self Name:DEBRA TOWNSEND Payer ID:[id number] (NAIC) Group ID:Not on file Type:Medicaid Managed Care Address: [employer] [address] Member Subscriber Plan / Payer (Ef fective 2021-Present) Name:Debra Townsend R Relation to Subscriber:Self Name:DEBRA TOWNSEND Payer ID:Not on file Group ID:[id number] Type:O Address: [address] Member Subscriber Plan / Payer (Ef fective for All Dates) Name:Debra Townsend Relation to Subscriber:Self Name:DEBRA TOWNSEND Payer ID:[id number] (NAIC) Group ID:Not on file Type:Medicaid Managed Care Address: [employer] [address] [address] Member Subscriber Plan / Payer (Ef fective 2021-Present) Name:Debra Townsend R Relation to Subscriber:Self Name:DEBRA TOWNSEND Payer ID:Not on file Group ID:[id number] Type:O Address: [place] [phone] [facility] Member Subscriber Plan / Payer (Ef fective for All Dates) Name:Debra Townsend R Relation to Subscriber:Self Name:DEBRA TOWNSEND Payer ID:[id number] (NAIC) Group ID:Not on file Type:Medicaid Managed Care Address: [employer] [place] [address] Member Subscriber Plan / Payer (Ef fective 2021-Present) Name:Debra Townsend R Relation to Subscriber:Self Name:DEBRA TOWNSEND Payer ID:Not on file Group ID:[id number] Type:O Address: [address] Member Subscriber Plan / Payer (Ef fective for All Dates) Name:Debra Townsend R Relation to Subscriber:Self Name:DEBRA TOWNSEND Payer ID:[id number] (NAIC) Group ID:Not on file Type:Medicaid Managed Care Address: [employer] [address] Member Subscriber Plan / Payer (Ef fective 2021-Present) Name:Debra Townsend R Relation to Subscriber:Self Name:DEBRA TOWNSEND Payer ID:Not on file Group ID:[id number] Type:O Address: [address] [facility] Member Subscriber Plan / Payer (Ef fective 2021-Present) Name:Debra Townsend R Relation to Subscriber:Self Name:DEBRA TOWNSEND Payer ID:Not on file Group ID:[id number] Type:HMO Address: [place] [phone] Member Subscriber Plan / Payer (Ef fective for All Dates) Name:Debra Townsend R Relation to Subscriber:Self Name:DEBRA TOWNSEND Payer ID:[id number] (NAIC) Group ID:Not on file Type:Medicaid Managed Care Address: [employer] [place]PARTMENT [address] Member Subscriber Plan / Payer (Ef fective 2021-Present) Name:Debra Townsend Relation to Subscriber:Self Name:DEBRA TOWNSEND Payer ID:Not on file Group ID:[id number] Type:O Address: [place] [phone] Member Subscriber Plan / Payer (Ef fective for All Dates) Name:Debra Townsend Relation to Subscriber:Self Name:DEBRA TOWNSEND Payer ID:[id number] (NAIC) Group ID:Not on file Type:Medicaid Managed Care Address: [employer] CLAIMS DEPARTMENT [address] Member Subscriber Plan / Payer (Ef fective 2022-Present) Name:Debra Townsend R Relation to Subscriber:Self Name:DEBRA TOWNSEND Payer ID:Not on file Group ID:[id number] Type:HMO Address: [address] Member Subscriber Plan / Payer (Ef fective 2022-Present) Name:Debra Townsend R Relation to Subscriber:Self Name:DEBRA TOWNSEND Payer ID:Not on file Group ID:[id number] Type:O Address: [address] Member Subscriber Plan / Payer (Ef fective for All Dates) Name:Debra Townsend R Relation to Subscriber:Self Name:DEBRA TOWNSEND Payer ID:[id number] (NAIC) Group ID:Not on file Type:Medicaid Managed Care Address: [employer] [facility] [address] Member Subscriber Plan / Payer (Ef fective 2022-Present) Name:Debra Townsend R Relation to Subscriber:Self Name:DEBRA TOWNSEND Payer ID:Not on file Group ID:[id number] Type:O Address: [address] [facility] [employer] [facility] [place] [address] [employer] [facility] Member Subscriber Plan / Payer (Ef fective 2022-Present) Name:Debra Townsend R Relation to Subscriber:Self Name:DEBRA TOWNSEND Payer ID:Not on file Group ID:[id number] Type:HMO Address: [address] Member Subscriber Plan / Payer (Ef fective for All Dates) Name:Debra Townsend R Relation to Subscriber:Self Name:DEBRA TOWNSEND Payer ID:[id number] (NAIC) Group ID:Not on file Type:Medicaid Managed Care Address: [employer] [address] Member Subscriber Plan / Payer (Ef fective 2022-Present) Name:Debra Townsend R Relation to Subscriber:Self Name:DEBRA TOWNSEND Payer ID:Not on file Group ID:[id number] Type:O Address: [address] Member Subscriber Plan / Payer (Ef fective for All Dates) Name:Debra Townsend R Relation to Subscriber:Self Name:DEBRA TOWNSEND Payer ID:[id number] (NAIC) Group ID:Not on file Type:Medicaid Managed Care Address: [employer] [place]PARTMENT [address] Member Subscriber Plan / Payer (Ef fective 2022-Present) Name:Debra Townsend R Relation to Subscriber:Self Name:DEBRA TOWNSEND Payer ID:Not on file Group ID:[id number] Type:O Address: [address] Member Subscriber Plan / Payer (Ef fective 2022-Present) Name:Debra Townsend R Relation to Subscriber:Self Name:JENN TOWNSENDANNA Payer ID:Not on file Group ID:[id number] Type:[facility] Address: [place] [phone] [facility] Member Subscriber Plan / Payer (Ef fective for All Dates) Name:Debra Townsend R Relation to Subscriber:Self Name:DEBRA TOWNSEND Payer ID:[id number] (NAIC) Group ID:Not on file Type:Medicaid Managed Care Address: [employer] [address] Member Subscriber Plan / Payer (Ef fective 2022-Present) Name:Debra Townsend R Relation to Subscriber:Self Name:JENN TOWNSENDANNA Payer ID:Not on file Group ID:[id number] Type:O Address: [address] [address] [facility] Member Subscriber Plan / Payer (Ef fective 2022-Present) Name:Debra Townsend Relation to Subscriber:Self Name:DEBRA TOWNSEND Payer ID:Not on file Group ID:[id number] Type:HMO Address: [address] Member Subscriber Plan / Payer (Ef fective for All Dates) Name:Debra Townsend R Relation to Subscriber:Self Name:DEBRA TOWNSEND Payer ID:[id number] (NAIC) Group ID:Not on file Type:Medicaid Managed Care Address: [employer] [address] Member Subscriber Plan / Payer (Ef fective 2022-Present) Name:Derba Townsend R Relation to Subscriber:Self Name:DEBRA TOWNSEND Payer ID:Not on file Group ID:[id number] Type:O Address: [address] Member Subscriber Plan / Payer (Ef fective 2022-Present) Name:Debra Townsend R Relation to Subscriber:Self Name:DEBRA TOWNSEND Payer ID:Not on file Group ID:[id number] Type:O Address: [place] [phone] [facility] Member Subscriber Plan / Payer (Ef fective 2022-Present) Name:Debra Townsend R Relation to Subscriber:Self Name:DEBRA TOWNSEND Payer ID:Not on file Group ID:[id number] Type:O Address: [place] [phone] [facility] Member Subscriber Plan / Payer (Ef fective 2022-Present) Name:Debra Townsend R Relation to Subscriber:Self Name:DEBRA TOWNSEND Payer ID:Not on file Group ID:[id number] Type:O Address: [place] [phone] [facility] Member Subscriber Plan / Payer (Ef fective 2022-Present) Name:Debra Townsend R Relation to Subscriber:Self Name:DEBRA TOWNSEND Payer ID:Not on file Group ID:[id number] Type:O Address: [place] [phone] [facility] [employer] [employer] Advance Directives * Full Code (Latest Code Status on File) Date Activated Date Inactivated Comments 06/05/2021 6:44 PM 06/07/2021 1:53 PM Care Teams Musical Instrument Supervisor Relationship Specialty Start Date End Date Va Booker MD [address] [place] [address] PCP - General 10/19/22
--- OUTSIDE RECORDS SUMMARY | 2024-12-09 16:20 | XMS_ITS | Clinical Summary ---
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
--- OUTSIDE RECORDS SUMMARY | 2024-12-09 16:21 | XMS_ITS | Patient Health Record ---
Author Organization [facility] Address [address] [place] [address] Support Name Relationship Address Phone Chantell Vera [...] Asthma NOS (493.90) Active confirmed Low Asthma (008823217) Problem CONTRACEPT PILL SURVEILL (V25.41) Active confirmed Surveillance of oral contraception done (791611825855057) Problem HPV Special screening exam (V73.81) Active confirmed Problem Dyspareunia (female) (625.0) Active confirmed Pain in female genitalia on intercourse (37574815) PLAN OF TREATMENT No Information Insurance Providers Payer Name Payer Address Payer Phone Subscriber Number Group Number Insured Name Patient Relationship to Insured Coverage Start Date Coverage End Date [employer] ATTN [employer]OUNT[employer] PAYABLE [address] [address] [place] [phone] [id number] Juliette Sigala Self - patient is the insured MEDICAL (GENERAL) HISTORY Medical History History ICD Code exertional asthma-only flare with uri, n o albuterol currently heart murmur Surgical History Surgery Date(Month/Year) [place]
--- OUTSIDE RECORDS SUMMARY | 2024-12-09 16:21 | XMS_ITS | Encounter Summary ---
Author Organization [facility] Address [address] [place] [address] Care Team Providers Care Equipment Scheduler Name Role Phone Va Booker MD Primary Care Provider [phone] Va Booker MD Unavailable Ashley Bedoya Unavailable Reason for Visit * Reason Onset Date Comments MEDICATION REFILL 05/21/2023 Encounter Details Date Type Department Care Team (Late st Contact Info) Description 05/21/2023 Refill [facility] - Neurology [address] [place] [address], [place] [address] Alley Colvin MD [address] [place] [address] [place] [address] MEDICATION REFILL Social History Tobacco [...] more drinks on one occasion? 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 Answer Date of Assessment Author No 06/05/2021 8:45 PM CDT Katie Roberts RN * Is person blind or have serious difficulty seeing? Answer Date of Assessment Author No 06/05/2021 8:45 PM CDT Katie Roberts RN * Does person have serious difficulty walking/climbing stairs? Answer Date of Assessment Author No 06/05/2021 8:45 PM CDT Katie Roberts RN * Does person have difficulty dressing/bathing? Answer Date of Assessment Author No 06/05/2021 8:45 PM CDT Katie Roberts RN * Does person have difficulty doing errands alone? Answer Date of Assessment Author No 06/05/2021 8:45 PM CDT Katie Roberts RN documented as of this encounter Mental Status * Does person have difficulty concentrating/remembering/making decisions? Answer Entry Date Author No 06/05/2021 8:45 PM Katie Cobian RN documented in this encounter Plan of Treatment Not on file documented as of this encounter Visit Diagnoses Diagnosis Cervicogenic headache Headache Migraine without aura and without status migrainosus, not intractable Migraine without aura, without mention of intractable migraine without mention of status migrainosus documented in this encounter Care Teams Equipment Scheduler Relationship Specialty Start Date End Date Va Booker MD [address] [place] [address] PCP - General 10/19/22 Va Booker MD [address] [place] [address] PCP - Attributed-[employer] [place] 12/18/22 09/19/23 Ashley Bedoya PA [address] [place] [address] PCP - Attributed-[employer] [place] 09/20/23 02/05/24 documented as of this encounter
--- OUTSIDE RECORDS SUMMARY | 2024-12-09 16:21 | XMS_ITS | Data Portability ---
[facility] Address [address] [place] [address] Assessment No assessment recorded. Plan of Treatment Reminders Order Date Submit Date Provider Last Modified By Organization Details Last Modified Time Details Appointments None recorded. Lab None recorded. Referral None recorded. Procedures None recorded. Surgeries None recorded. Imaging None recorded. Medication Orders prednisone 20 mg tablet 2015 016 [facility] #[id number], [address], [id number], 6 15:20:00 Patient TargetsNo targets recorded. Patient InstructionsNo instructions recorded. Reason for Referral None Reported. Problems Name Problem SNOMED Code Status Onset Date Resolution Date Notes Provider Name and Address Organization Details Recorded Time Upper respiratory infection 24397108 Active Elisabeth robins [facility] 6 15:20:00 Allergic reaction 063953536 Active Elisabeth robins [facility] 6 15:30:32 Problem Notes None recorded. Procedures Surgical History Date Name Laterality Status Provider Name and Address Organization Details Recorded Time Other completed Elisabeth Rosie [facility] 01/19 15:20:00 Imaging Results None recorded. Procedure Notes None recorded. Medical Equipment None Reported. Allergies Allergen ID Allergen Name Allergen Category Reaction Reaction Severity Criticality Documentation Date Start Date Code Code System Note Provider Name and Address Organization Details Recorded Time 45485 prednisol one medicatio n other Not available [...] 6 76 /min 18 /min 97.9 [degF] 98888.3 0729 g 20.1 kg/m2 162.56 cm 104 mm[Hg] 70 mm[Hg] Opal Gonzalez [facility] 6 16:18:51 Date Recorded Body height Body mass index (BMI) Body weight Systolic blood pressure Diastolic blood pressure Provider Name and Address Organization Details Last Updated DateTime 01/20/2016 161.29 cm 20.7 kg/m2 91038.49 203 g 96 mm[Hg] 58 mm[Hg] Elisabeth Finchoten [facility] 6 15:20:00 Social History None recorded. Functional Status None recorded. Mental Status None recorded. Family History Nothing Reported. Medical History Condition Response Coronary Artery Disease N Other N High Blood Pressure N Atrial Fibrillation N Thyroid Problems N Kidney or Bladder Problems N Blood Clots N COPD N Depression N GI Problems N Skin Problems N Anemia N Heart Attack (CO) N Anxiety Disorder N Diabetes N Muscle, Joint, or Bone Problems N Seizures/Epilepsy N Acid Reflux (GERD) N Cancer N Stroke N Asthma N Allergies N High Cholesterol N Hepatitis N Liver Disease N Headaches N Heart Failure N Osteoporosis N Gynecological HistoryNo gynecological history recorded. Obstetrics History GPAL:G 0 P 0 0 0 0 Past Encounters Encounter ID Performer Location Encounter Start Date Encounter Closed Date Diagnosis/Indication Diagnosis SNOMED-CT Code Diagnosis ICD10 Code Diagnosis Note [id number] Walter Cárdenas MD [facility] [address] [place] [address] 01/18/2016 15:32:59 01/18/2016 17:09:13 Upper respiratory infection 70822619 J06.9 [id number] Walter Cárdenas MD [facility] [address] [place] [address] 01/20/2016 15:15:37 01/20/2016 15:40:07 Allergic reaction 537938005 T78.40XA Health Concerns Section Related Observation LastModified by Organization Detai ls LastModified Time None Recorded Concern Status LastModified by Organization Details LastModified Time None Recorded Advance Directives Directive None Recorded Payers Encounter Date Sequence Insurance Name Policy Number Policy Whiteside Covered Member ID Whiteside Member ID Guarantor Name 01/18/2016 1 [facility] [id number] Juliette Beckwith [id number] Juliette Sigala 01/20/2016 1 [facility] [id number] Juliette Beckwith [id number] Juliette Sigala OBGyn Episode No OBEpisode recorded.
--- OUTSIDE RECORDS SUMMARY | 2024-12-09 16:21 | XMS_ITS | Encounter Summary ---
Author Organization [facility] Address [address] [facility] [place] [address] Care Team Providers Care Pastoral Counselor Name Role Phone Va Booker MD Primary Care Provider [phone] Ashley Bedoya Unavailable Ashley Bedoya Primary Care Provider [phone] Va Booker MD Primary Care Provider [phone] Va Booker MD Unavailable Ashley Bedoya Unavailable Reason for Visit * Reason Onset Date Comments MEDICATION REFILL 09/26/2021 Encounter Details Date Type Department Care Team (Late st Contact Info) Description 09/26/2021 Refill [facility] [address] [facility] [address] [place] [address] Briana Enamorado MD Need new address MEDICATION [...] more drinks on one occasion? 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 Answer Date of Assessment Author No 06/05/2021 8:45 PM CDT Katie Roberts RN documented as of this encounter Mental Status * Does person have difficulty concentrating/remembering/making decisions? Answer Entry Date Author No 06/05/2021 8:45 PM Katie Cobian RN documented in this encounter Miscellaneous Notes * Telephone Encounter - Fidelia Erwin RN - 09/26/2021 3:21 PM RAILWAY TRACTION LINE WORKER Refill denied for Neurontin as patient should have sufficient refills. Last refill, 08/2021 for oneyear supply.. WAY TRACTION LINE WORKER documented in this encounter Plan of Treatment Not on file documented as of this encounter Visit Diagnoses Not on filedocumented in this encounter Care Teams Pastoral Counselor Relationship Specialty Start Date End Date Va Booker MD [address] [place] [address] PCP - General 04/03/19 05/30/22 Ashley Bedoya PA [address] [place] [address] PCP - Attributed-[employer] [place] 10/18/21 12/17/22 Ashley Bedoya PA [address] [place] [address] PCP - General 05/31/22 10/18/22 Va Booker MD [address] [place] [address] PCP - General 10/19/22 Va Booker MD [address] [place] [address] PCP - Attributed-[employer] [place] 12/18/22 09/19/23 Ashley Bedoya PA [address] [place] [address] PCP - Attributed-[employer] [place] 09/20/23 02/05/24 documented as of this encounter
== END 2024-12-09 14:11 | disposition home or self-care (01) ==
LOC: ANHIMG 14:11
PROVIDERS: PCP Family Medicine; Visit Provider Urology
DX: N20.0 Calculus of kidney (principal)
CPT/HCPCS: 74018

== ENCOUNTER 2025-03-24 14:00 | Outpatient (CLI) | payer OTHER, SELFPAY ==
--- NOTE | ~2025-03-24 | XR_ITS ---
XR shoulder RT min 2V 03/24/2025 14:24 INDICATION: Right shoulder pain PROCEDURE: 4 views right shoulder COMPARISON: No prior studies for comparison. FINDINGS: Fracture, dislocation or subluxation is not identified. The soft tissues appear within norm al limits. No foreign bodies are identified. IMPRESSION: 1: NO ACUTE BONE OR JOINT ABNORMALITY IDENTIFIED. Reviewed, dictated and finalized at location A.
--- NOTE | ~2025-03-24 | XR_ITS ---
XR_CERV2-3V_CR INDICATION: Neck pain TECHNIQUE: 3 views of the cervical spine. FINDINGS: 12/14/2015 The cervical spine is visualized to the cervicothoracic junction. There is no prevertebral soft tiss ue swelling, listhesis, or loss of vertebral body height. Intervertebral disc spaces are normal. Th e osseous central canal is patent. No displaced cervical spine fractures are identified. IMPRESSION: 1. No acute osseous abnormality of the cervical spine. Reviewed, dictated and finalized at location A.
== END 2025-03-24 14:01 | disposition home or self-care (01) ==
LOC: MICIMG 14:04
PROVIDERS: PCP Family Medicine; Visit Provider Student in an Organized Health Care Education/Training Program
DX: M25.511 Pain in right shoulder (principal); M54.2 Cervicalgia
CPT/HCPCS: 72040; 73030

== ENCOUNTER 2025-04-16 13:37 | Emergency (ER) | payer OTHER, SELFPAY ==
[2025-04-16 13:40] VITALS: BP 109/58; PULSE 67; RESP 12; TEMP 36.6; O2SAT 100
--- NOTE | 2025-04-16 13:40 | ED.EYEPROB ---
HPI - Eye Problem General Chief complaint: Eye Problems Stated complaint: LT Eye Problem Time Seen by Provider: 04/16/25 13:40 Source: patient Mode of arrival: ambulatory Limitations: no limitations History of Present Illness HPI Narrative: Patient is a 34-year-old female who presents with left upper eyelid pain, swelling and mild redness for 2 days. Patient has used warm compresses with no relief. Patient denies any new makeup and does not wear contacts. Denies any changes in vision, drainage from eye or irritation. Related Data Home Medications ?Medication ?Instructions ?Recorded ?Confirmed ?Last Taken ?Type topiramate 50 mg tablet 50 mg PO Q12H 11/25/24 03/24/25 11/28/24 History baclofen 10 mg tablet 10 mg PO DAILY 12/02/24 03/24/25 Unknown History Allergies Allergy/AdvReac Type Severity Reaction Status Date / Time No Known Allergies Allergy Verified 04/16/25 13:40 Review of Systems Review of Systems: All systems reviewed & are unremarkable except as noted in HPI and below Constitutional: Constitutional: Denies body ache(s), Denies fever(s), Denies headache(s), Denies malaise and Denies weakness Eyes: Eyes: Denies blurry vision, Denies eye discharge, Denies irritation, Denies itchy eyes, Denies loss of vision, Reports eye pain (eye lid) and Reports other (eye lid swelling) ENT: Denies otalgia, Denies headache(s), Denies nasal discharge, Denies sinus pain and Denies sore throat Cardiovascular: Cardiovascular: Denies chest pain, Denies irregular heart rhythm and Denies dyspnea Respiratory: Respiratory: Denies dyspnea Gastrointestinal: Gastrointestinal: Denies abdominal pain, Denies diarrhea, Denies nausea and Denies vomiting Musculoskeletal: Musculoskeletal: Denies back pain, Denies myalgias and Denies arthralgias Integumentary/Breasts: Skin/Breast: Denies pruritus and Denies rash Neurologic: Denies headache(s), Denies loss of vision and Denies weakness Psychiatric: Psychiatric: Reports no additional psychiatric complaints Allergic/Immunologic: Allergic/Immunologic: Reports itchy eyes PMFSH Past Medical History Medical History Tendinitis of left flexor hallucis longus Impingement of left ankle joint Anxiety Depression Asthma Wears glasses Chronic headaches Flat foot [pes planus] (acquired), left foot Posterior tibial tendon dysfunction (PTTD) of left lower extremity Endometriosis Healthy adult Surgical History Surgical History History of laparoscopy H/O: hysterectomy History of appendectomy Family History Family History Grandparent Diabetes mellitus Malignant neoplasm of prostate Other Heart disease Social History Social History Smoking status: Never smoker Second hand tobacco smoke exposure: No Alcohol intake: current Substance use: current Substance use type: marijuana Other substance usage details: smokes marijuana 2-3 times daily Lack of Transportation: No Lack of Food: Never True Current Housing: I Have Housing Concerned About Future Housing: No Difficulty Paying Gas/Electric Bills: No Difficulty Paying for Meds: No Currently Unemployed: No Education: Associate Degree Difficulty w/ Childcare or Family Care: No Living arrangements: with family Gender identity (if verbalized by the patient): Female Spiritual care concerns: No Agree to blood products: Yes Comments At time of signature, agree with nursing past medical, surgical, social and family history. There is no relevant family history pertinent to the presenting complaint. Exam Const: General: cooperative, healthy appearing, comfortable, no acute distress and well nourished Nutritional Appearance: well nourished Orientation/consciousness: patient oriented x3 Limitations: no limitations HENMT: Head: normal to inspection, normocephalic and atraumatic Ears: external ears normal Face/Nose/Sinus: Normal external nose present, normal facial exam and face symmetric Face and sinus: normal facial exam and face symmetric Mouth: Yes lip normal Eyes: General: appearance normal, both eyes and all related structures Visual Figueroa: normal visual figueroa by confrontation Alignment and Position: alignment normal and position normal Periorbital: periorbital findings normal Eyelids: eyelid abnormality left upper eyelid erythema (along margin), lid margins crusty/scaly, swelling (along margin) and tenderness (along margin) Conjunctivae: conjunctivae normal Sclera: sclerae normal Pupils: Equal, round and reactive pupils present EOM: EOMs intact bilaterally Direct Ophthalmoscopy: no photophobia Other: No hyphema, no foreign body under the lids. Neck: Neck: normal visual inspection, full ROM, no lymphadenopathy and no meningeal signs Chest: Chest palpation & inspection: normal inspection of the chest Resp: Effort & Inspection: normal respiratory effort and able to speak in complete sentences Auscultation: clear to auscultation bilaterally Cardio: Rate: regular rate Rhythm: regular rhythm Heart sounds: S1 normal heart sound present and S2 normal heart sound present GI: Inspection: normal to inspection Skin: General skin exam: normal color and no rashes or lesions noted Neuro: General: patient oriented x3, moves all extremities and no meningeal signs Cranial nerves: Yes Equal, round and reactive pupils present Speech: normal speech Gait exam (Neuro): Normal gait present Extrem: General: normal to inspection, full ROM and no edema Psych: Appearance: grossly normal and well kempt Mental Status: mental status grossly normal Speech and movement: Normal speech and movement present Affect: normal affect Attitude: cooperative Thought process: Normal thought process present Course Course Emergency Course: Patient is aware of diagnosis, understands and agrees to treatment plan. Anticipatory guidance given. Patient agrees to follow-up as directed and is aware of reasons to seek care at the emergency department. Portions of this record may have been created with voice recognition software Level of Care: Express Care Visit Vital Signs Vital signs: Reviewed MDM - Eye Problem MDM Narrative Medical decision making narrative: Exam findings consistent with blepharitis. Will treat with antibiotic ointment. No concern for periorbital cellulitis as there is no significant erythema, induration or swelling outside of localized infection. Exam findings show no acute concerns or changes; patient is non-toxic appearing and is in no distress.? Patient is appropriate for outpatient treatment and follow-up Discharge instructions reviewed with patient and family, as well as provided in writing per nursing staff. The instructions also include specific and strict return/GO TO THE ER as well as f/u information. All questions have been answered, and the patient deny any further questions with discharge and discharge plan. Consideration of the following conditions may be warranted for the presenting problem, they are not final diagnoses: Bacterial conjunctivitis, allergic conjunctivitis, viral conjunctivitis, foreign body, blepharitis, chalazion, hordeolum, corneal abrasion. Medical Records Attestation: I reviewed the patient's medical records. Discharge Plan Discharge Clinical Impression: Blepharitis Qualifiers: Blepharitis type: unspecified type Laterality: left Eyelid: upper Qualified Code(s): H01.004 - Unspecified blepharitis left upper eyelid Patient Disposition: Home Condition: Stable Instructions: Blepharitis (ED) Additional Instructions: Use antibiotic ointment is prescribed Apply warm compress to close the lid for 5-10 minutes, 2-4 times daily. Wash lids with a mixture of baby shampoo and water. Consider artificial tears to treat dry eye. Take a Claritin. If eyelid continues to swell, increased area of redness, or large amounts of crusting around eyelashes, go to primary care provider or eye doctor as that may require antibiotics. If you have any changes in vision go directly to the emergency department. Patient Language: Northern Irish Prescriptions: New erythromycin 5 mg/gram (0.5 %) ointment 0.5 inch LEFT EYE QID 5 Days Qty: 3.5 0RF No Action triamcinolone acetonide 0.1 % cream 1 applic topical BID Qty: 15 0RF baclofen 10 mg tablet 10 mg PO DAILY topiramate 50 mg tablet 50 mg PO Q12H sertraline 100 mg tablet 100 mg PO DAILY Qty: 90 1RF Patient Comments: Says takes later in the day. Follow-up/Referrals: Va Booker MD [Primary Care Provider, Family Practice] - 3 Days Stand Alone Forms: Work/School Release IP Time of Disposition: 13:48
== END 2025-04-16 13:54 | disposition home or self-care (01) ==
PROVIDERS: Emergency Provider Nurse Practitioner Family; PCP Family Medicine
DX: H01.004 Unspecified blepharitis left upper eyelid (principal); F12.90 Cannabis use, unspecified, uncomplicated; J45.909 Unspecified asthma, uncomplicated; N80.9 Endometriosis, unspecified
CPT/HCPCS: 99213; G0463

== ENCOUNTER 2025-06-10 14:36 | Outpatient (CLI) | payer OTHER, SELFPAY ==
--- OUTSIDE RECORDS SUMMARY | 2025-06-08 15:06 | XMS_ITS | Encounter Summary ---
Author Organization [facility] Address [address] [facility] [place] [address] Care Team Providers Care Homeland Security Program Specialist Name Role Phone Va Booker MD Primary Care Provider [phone] Encounter Details Date Type Department Care Team (Latest Contact Info) Description 06/08/2025 3:06 PM CDT - 06/08/2025 11:59 PM CDT Hospital Encounter [facility]STIC [facility] [address] [facility] 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 30 tablet 2 02/01/2024 sertraline (Zoloft) 100 MG tablet 10/22/2024 topiramate (Topamax) 50 MG tabletIndications: Migraine without aura and without status migrainosus, not intractable,Cervic ogenic headache Take 1 (one) tablet by mouth at bedtime 90 tablet 3 03/04/2025 documented as of this encounter Plan of Treatment Upcoming Encounters Date Type Department Care Team (Late st Contact Info) Description 06/17/2025 3:30 PM CDT Office Visit [facility] - Family Medicine [address] [place] [address] [place] [phone] Sarbjit Coleman MD [address] [facility] [address]L [place] [address] 09/04/2025 4:00 PM NURSERY TEACHER Video Visit [facility] - Neurology [facility] [facility] [place] [address] Jazzy Russell, PEANUT SALTER-FLOOR RENOVATOR [address] [place] [address] [address] [place] [address] documented as of this encounter Procedures Procedure Name Priority Date/Time Associated Diagnosis Comments XR SHOULDER RIGHT 2VW OR MORE Routine 06/08/2025 3:14 PM CDT Right shoulder pain, unspecified chronicity documented in this encounter Results * XR Shoulder Right 2Vw or More (06/08/2025 3:14 PM CDT) Anatomical Region Laterality Modality Upper Extremity Radiographic Cee ging 06/08/2025 3:17 PM CDT Impressions 06/08/2025 3:37 PM CDT IMPRESSION: No acute fracture or dislocation identified. Report dictated by Hero Aguero MD, (vice president financial). > Dictated by Care Process Manager I, Ciaran Rodriguez MD have personally reviewed and interpreted this examination/study. > Interpreting Provider: Ciaran Rodriguez MD on 06/08/2025 3:37 PM Narrative 06/08/2025 3:37 PM CDT PROCEDURE: XR SHOULDER RIGHT 2VW OR MORE, DATE/TIME OF EXAM: 06/08/2025 3:15 PM, LOCATION [facility] INDICATION: M25.511: Right shoulder pain, unspecified chronicity ADDITIONAL CLINICAL INFORMATION: Ordering Provider Reason For Exam: R shoulder pain Technologist Note: Additional: COMPARISON: None. FINDINGS: The osseous structures are intact without acute fracture. The glenohumeral and acromioclavicular joints are in anatomic alignment. Bone density and texture are normal. Procedure Note Ciaran Rodriguez MD - 06/08/2025 PROCEDURE: XR SHOULDER RIGHT 2VW OR MORE, DATE/TIME OF EXAM:06/08/2025 3:15 PM, LOCATION [facility] INDICATION: M25.511: Right shoulder pain, unspecified chronicity ADDITIONAL CLINICAL INFORMATION: Ordering Provider Reason For Exam: R shoulder pain Technologist Note: Additional: COMPARISON: None. FINDINGS: The osseous structures are intact without acute fracture. Theglenohumeral and acromioclavicular joints are in anatomic alignment. Bone density and texture are normal. IMPRESSION: No acute fracture or dislocation identified. Report dictated by Hero Aguero MD, (vice president financial). > Dictated by Care Process Manager I, Ciaran Rodriguez MD have personally reviewed and interpreted this examination/study. > Interpreting Provider: Ciaran Rodriguez MD on 06/08/2025 3:37 PM Mary Anne Riddle MD DIAGNOSTIC IMAGING ORDERABLES Fi nal Result documented in this encounter Visit Diagnoses Diagnosis Right shoulder pain, unspecified chronicity documented in this encounter Care Teams Homeland Security Program Specialist Relationship Specialty Start Date End Date Va Booker MD [address] [place] [address] PCP - General 10/19/22 documented as of this encounter
--- NOTE | ~2025-06-10 | XR_ITS ---
XR abdomen/kub 1V 06/10/2025 14:54 INDICATION: Renal stone TECHNIQUE: KUB COMPARISON: 12/09/2024 FINDINGS: Bowel gas pattern is normal. There is no evidence of free air, mass, organomegaly, ascites or obstruction. No abnormal calculi are seen. The bones appear intact. IMPRESSION: 1: No acute abdominal abnormality identified. Reviewed, dictated and finalized at location O.
--- OUTSIDE RECORDS SUMMARY | 2025-06-10 18:54 | XMS_ITS | Encounter Summary ---
Author Organization [facility] Address [address] [facility] [place] [address] Care Team Providers Care Staff Engineer Name Role Phone Va Booker MD Primary Care Provider [phone] Va Booker MD Unavailable Ashley Bedoya Unavailable Reason for Visit * Reason Onset Date Comments MEDICATION REFILL 05/21/2023 Encounter Details Date Type Department Care Team (Late st Contact Info) Description 05/21/2023 Refill [facility]rology [address] [place] [address], [facility] [place] [address] Alley Colvin MD [address] [place] [address] [place] [address] MEDICATION REFILL Social History Tobacco [...] PM CDT 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 Gender Identity Female 11/01/2022 2:28 PM CDT [...] Katie Roberts RN documented in this encounter Plan of Treatment Upcoming Encounters Date Type Department Care Team (Late st Contact Info) Description 06/17/2025 3:30 PM CDT Office Visit [facility] - Family Medicine [address] [place] [address], [place] [phone] Sarbjit Coleman MD [address] [place] [address] [address] DIV [place] [phone] 09/04/2025 4:00 PM WORKERS COMPENSATION LEGAL SECRETARY Video Visit [facility] - Neurology [address] [place] [phone] Jazzy Russell, TICKET WRITER-RESPIRATORY THERAPY DIRECTOR [address] [place] [address] [address] [place] [phone] documented as of this encounter Visit Diagnoses Diagnosis Cervicogenic headache Headache Migraine without aura and without status migrainosus, not intractable Migraine without aura, without mention of intractable migraine without mention of status migrainosus documented in this encounter Care Teams Staff Engineer Relationship Specialty Start Date End Date Va Booker MD [address] [place] [address] PCP - General 10/19/22 Va Booker MD [address] [place] [address] PCP - Attributed-[employer] [place] 12/18/22 09/19/23 Ashley Bedoya PA [address] [place] [address] PCP - Attributed[facility] [place] 09/20/23 02/05/24 documented as of this encounter
--- OUTSIDE RECORDS SUMMARY | 2025-06-10 18:54 | XMS_ITS | Clinical Summary ---
Author Organization [facility] Address [address] [place] [address] Care Team Providers Care Optimization Analyst Name Role Phone Va Booker MD Primary Care Provider [phone] Source Comments [facility],non-owned Affiliates and Associated Physician Practices is amultiple site organization consisting of ambulatory clinics and hospital sitesin [place], [place], [place] and [place]. This disclosure is being madepursuant to the Care Everywhere program and may not contain all information available regarding this patient. Last updated 18.[facility] [employer] Allergies No known active allergies Medications * Be aware that medications may not be up to date on this document. Alwaysverify current medications with the patient. baclofen (Lioresal) 10 MG tabletIndication s:Cervicogenic headache,Migrain e without aura and without status migrainosus, not intractable,Intr actable chronic migraine without aura and without status migrainosus Take 1 (one) tablet by mouth once daily as needed for Muscle Spasms May cause drowsiness. 30 tablet 2 4 Active sertraline (Zoloft) 100 MG tablet 5 Active topiramate (Topamax) 50 MG tabletIndication s:Migraine without aura and without status migrainosus, not intractable,Cerv icogenic headache Take 1 (one) tablet by mouth at bedtime 90 tablet 3 5 Active erythromycin (Romycin) 5 MG/GM ophthalmic ointment Instill into left eye 2 times daily 06/08/20 25 Discontinu ed(Tx Complete) Active Problems Problem Noted Date Diagnosed Date Anxiety 06/04/2025 Depression 06/04/2025 Intractable chronic migraine without aura and without status migrainosus 12/20/2023 Pneumoperitoneum 06/05/2021 Peritonitis 06/05/2021 Status post hysterectomy 06/05/2021 Asthma 03/04/2021 Cervicalgia 03/04/2021 Costochondritis 03/04/2021 Chronic pelvic pain in female 07/07/2019 Encounters Date Type Department Care Team Description 06/09/2025 Telephone [facility] [address] [place] [phone] Nikolai Morrow Scheduling 06/08/2025 3:06 PM CDT - 06/08/2025 11:59 PM CDT Hospital Encounter [facility] DI[facility]NOSTIC RAD [address] [place] [address] Mary Anne Riddle MD Discharge Disposition: Home or Self Care 06/08/2025 2:50 PM CDT Office Visit [facility] - Orthopedics [address] [place] [phone] Mary Anne Riddle MD Right shoulder pain, unspecified chronicity (Primary Dx) 06/08/2025 11:30 AM CDT Office Visit [facility] - FINISHING TUNNEL OPERATOR [address] [facility] [address] [place] [phone] Gloria Schneider MD Well woman exam with routine gynecological exam (Primary Dx) 06/08/2025 Travel 06/03/2025 Orders Only [facility] [address] [place] [phone] Mary Anne Riddle MD Right shoulder pain, unspecified chronicity 06/03/2025 Travel 04/18/2025 4:30 PM CDT - 04/18/2025 11:59 PM CDT Hospital Encounter [facility] [address] [place] [address] Delmis Godwin, ELECTRIC ENGINE MECHANIC-DIRECTOR DRUG SAFETY Discharge Disposition: Home or Self Care 04/18/2025 Travel from Last 3 Months Immunizations Immunization Administration Dates Next Due Covid Pfizer primary monovalent 12+ yr 0.3mL Pur ple cap 04/19/2021 Family History Medical History Relation Name Comments Cancer - Breast Maternal Aunt Other - Implementation Coordinator Maternal Aunt Vulvar Cancer Cancer - Prostate [...] PM CDT 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 Gender Identity Female 11/01/2022 2:28 PM CDT Sexual Orientation Not on file Last Filed Vital Signs Vital Sign Reading Time Taken Comments Blood Pressure 120/80 06/08/2025 11:22 AM CDT Pulse 65 04/18/2025 4:51 PM CDT Temperature 37 C (98.6 F) 04/18/2025 4:51 PM CDT Respiratory Rate 20 04/18/2025 4:51 PM CDT Oxygen Saturation 99% 04/18/2025 4:51 PM CDT Inhaled Oxygen Concentration - - Weight 59.9 kg (132 lb) 06/08/2025 3:17 PM CDT Height 162.6 cm (5' 4) 06/08/2025 3:17 PM CDT Body Mass Index 22.66 06/08/2025 3:17 PM CDT Plan of Treatment Upcoming Encounters Date Type Department Care Team (Late st Contact Info) Description 06/17/2025 3:30 PM CDT Office Visit [facility] - Family Medicine [address] [place] [address], [place] [phone] Sarbjit Coleman MD [address] [place] [address] [address] [place] [address] 09/04/2025 4:00 PM BLANCHARD GRINDER OPERATOR Video Visit [facility] - Neurology [address] [place] [address], [place] [address] Jazzy Russell, ELECTRIC ENGINE MECHANIC-DIRECTOR DRUG SAFETY [address] [place] [address] [address] [place] [phone] Health Maintenance Due Date Last Done Comments DTAP/TDAP/TD VACCINES (1 - Tdap) 2010 HEPATITIS B VACCINE (1 of 3 - 19+ 3-dose series) 2010 PNEUMOCOCCAL VACCINE (1 of 2 - PCV) 2010 HPV VACCINE (1 - 3-dose SCDM series) 2018 COVID-19 VACCINE (2 - 2024-2 6 season) 2025 04/19/2021 INFLUENZA VACCINE (#1) 2025 ZOSTER VACCINE (1 of 2) 2041 HEPATITIS C SCREENING Completed 12/24/2023 HIV SCREENING Completed 12/24/2023 DEPRESSION SCREENING Completed 04/18/2025, 10/15/2023, 07/23/2023 HIB VACCINE Aged Out No longer eligi [...] PM CDT Right shoulder pain, unspecified chronicity HEPATITIS C AB W/RFLX TO HCV RNA QN PCR Routine 12/24/2023 Screen for STD (sexually transmitted disease) HIV-1 HIV-2 ANTIBODY + HIV P24 AG PANEL Routine 12/24/2023 Screen for STD (sexually transmitted disease) from Last 3 Months or Most Recently Relevant to Health Maintenance Results * XR Shoulder Right 2Vw or More (06/08/2025 3:14 PM CDT) Anatomical Region Laterality Modality Upper Extremity Radiographic Cee ging 06/08/2025 3:17 PM CDT Impressions 06/08/2025 3:37 PM CDT IMPRESSION: No acute fracture or dislocation identified. Report dictated by Hero Aguero MD, (human resources vice president). > Dictated by Enterprise Account Manager I, Ciaran Rodriguez MD have personally reviewed and interpreted this examination/study. > Interpreting Provider: Ciaran Rodriguez MD on 06/08/2025 3:37 PM Narrative 06/08/2025 3:37 PM CDT PROCEDURE: XR SHOULDER RIGHT 2VW OR MORE, DATE/TIME OF EXAM: 06/08/2025 3:15 PM, LOCATION [facility] INDICATION: M25.511: Right shoulder pain, unspecified chronicity [...] MORE, DATE/TIME OF EXAM:06/08/2025 3:15 PM, LOCATION [facility] INDICATION: M25.511: Right shoulder pain, unspecified chronicity ADDITIONAL CLINICAL INFORMATION: Ordering Provider Reason For Exam: R shoulder pain Technologist Note: Additional: COMPARISON: None. FINDINGS: The osseous structures are intact without acute fracture. Theglenohumeral and acromioclavicular joints are in anatomic alignment. Bone density and texture are normal. IMPRESSION: No acute fracture or dislocation identified. Report dictated by Hero Aguero MD, (human resources vice president). > Dictated by Enterprise Account Manager I, Ciaran Rodriguez MD have personally reviewed and interpreted this examination/study. > Interpreting Provider: Ciaran Rodriguez MD on 06/08/2025 3:37 PM Mary Anne Riddle MD DIAGNOSTIC IMAGING ORDERABLES Fi nal Result * HEPATITIS C AB W/RFLX TO HCV RNA QN PCR (12/24/2023) Hepatitis C Antibody NON-REACTI VE NON-REACT [facility] Comment: HCV antibody was non-reactive. There is no laboratory evidence of HCV infection. In most cases, no further action is required. However, if recent HCV exposure is suspected, a test for HCV RNA (test code 94261) is suggested. For additional information please refer to http://education.WeddingLovely/faq/IPI47p8 (This link is being provided for informational/ educational purposes only.) Test Performed at: [facility] [employer] [address] [place] [address] RANDA OLSON MD Blood BLOOD SPECIMEN / Unknown 12/24/2023 12/24/2023 1:38 PM CDT Gloria Schneider MD LAB - CHEMISTRY ORDERABLES Final Result [facility] [address] [place] [address] * HIV-1 HIV-2 ANTIBODY + HIV P24 [...] purpose. For additional information please refer to http://education.WeddingLovely/faq/SOS398 (This link is being provided for informational/ educational purposes only.) The performance of this assay has not been clinically validated in patients less than 2 years old. Test Performed at: [facility] [address] [place] [address] RANDA OLSON MD Blood BLOOD SPECIMEN / Unknown 12/24/2023 12/24/2023 1:38 PM CDT us Gloria Schneider MD LAB - CHEMISTRY ORDERABLES Final Result [facility] [address] [place] [address] from Last 3 Months or Most Recently Relevant to Health Maintenance Insurance [employer] [facility] Member Subscriber Plan / Payer (Ef fective 2021-Present) Name:Debra Townsend Relation to Subscriber:Self Name:DEBRA TOWNSEND Payer ID:Not on file Group ID:[id number] Type:O Address: [address] [place] [address] [email or web address] [facility] Member Subscriber Plan / Payer (Ef fective for All Dates) Name:Debra Townsend R Relation to Subscriber:Self Name:DEBRA TOWNSEND Payer ID:[id number] (NAIC) Group ID:Not on file Type:Medicaid Managed Care Address: [facility] CLAIMS DEPARTMENT [address] Member Subscriber Plan / Payer (Ef fective 2021-Present) Name:Debra Townsend R Relation to Subscriber:Self Name:DEBRA TOWNSEND Payer ID:Not on file Group ID:[id number] Type:[employer] Address: [address] [place] [employer] [facility] Member Subscriber Plan / Payer (Ef fective 2021-Present) Name:Debra Townsend Relation to Subscriber:Self Name:DEBRA TOWNSEND Payer ID:Not on file Group ID:Not on file Type:O Address: [address] Member Subscriber Plan / Payer (Ef fective 2021-Present) Name:Debra Townsend Relation to Subscriber:Self Name:DEBRA TOWNSEND Payer ID:Not on file Group ID:Not on file Type:O Address: [place] [id number] [facility] Member Subscriber Plan / Payer (Ef fective for All Dates) Name:Debra Townsend R Relation to Subscriber:Self Name:CARYDEBRA Payer ID:[id number] (NAIC) Group ID:Not on file Type:Medicaid Managed Care Address: [facility] CLAIMS DEPARTMENT [address] Member Subscriber Plan / Payer (Ef fective 2021-Present) Name:Debra Townsend Relation to Subscriber:Self Name:DEBRA TOWNSEND Payer ID:Not on file Group ID:Not on file Type:O Address: [place] [id number] [facility] Member Subscriber Plan / Payer (Ef fective 2021-Present) Name:Debra Townsend R Relation to Subscriber:Self Name:DEBRA TOWNSEND Payer ID:Not on file Group ID:Not on file Type:O Address: [address] [employer] [facility] Member Subscriber Plan / Payer (Ef fective 2021-Present) Name:Debra Townsend R Relation to Subscriber:Self Name:CARYDEBRA MEZA Aleksandra Payer ID:Not on file Group ID:[id number] Type:O Address: [address] [facility] Address: [address] Member Subscriber Plan / Payer (Ef fective 2021-Present) Name:Debra Townsend Relation to Subscriber:Self Name:DEBRA TOWNSEND Payer ID:Not on file Group ID:[id number] Type:O Address: [place] [phone] [facility] Member Subscriber Plan / Payer (Ef fective 2021-Present) Name:Debra Townsend R Relation to Subscriber:Self Name:DEBRA TOWNSEND Payer ID:Not on file Group ID:[id number] Type:O Address: [place] [phone] [facility] Member Subscriber Plan / Payer (Ef fective 2021-Present) Name:Debra Townsend R Relation to Subscriber:Self Name:DEBRA TOWNSEND Payer ID:Not on file Group ID:[id number] Type:O Address: [place] [id number] [facility] [employer] [facility] Member Subscriber Plan / Payer (Ef fective for All Dates) Name:Debra Townsend R Relation to Subscriber:Self Name:JENN TOWNSENDANNA Payer ID:[id number] (NAIC) Group ID:Not on file Type:Medicaid Managed Care Address: [facility] CLAIMS DEPARTMENT [address] Member Subscriber Plan / Payer (Ef fective 2022-Present) Name:Cary Debra R Relation to Subscriber:Self Name:DEBRA TOWNSEND Payer ID:Not on file Group ID:[id number] Type:O Address: [address] [place] [address] [facility] Address: [address] Member Subscriber Plan / Payer (Ef fective for All Dates) Name:Debra Townsend R Relation to Subscriber:Self Name:DEBRA TOWNSEND Payer ID:[id number] (NAIC) Group ID:Not on file Type:Medicaid Managed Care Address: [facility] CLAIMS DEPARTMENT [address] [facility] Member Subscriber Plan / Payer (Ef fective 2022-Present) Name:Cary Debra R Relation to Subscriber:Self Name:CARYDEBRA Payer ID:Not on file Group ID:[id number] Type:O Address: [place] [phone] [facility] [address] [email or web address] [facility] Member Subscriber Plan / Payer (Ef fective 2022-Present) Name:Debra Townsend R Relation to Subscriber:Self Name:DEBRA TOWNSEND Payer ID:Not on file Group ID:[id number] Type:O Address: [address] Member Subscriber Plan / Payer (Ef fective for All Dates) Name:Debra Townsend R Relation to Subscriber:Self Name:DEBRA TOWNSEND Payer ID:[id number] (NAIC) Group ID:Not on file Type:Medicaid Managed Care Address: [facility] CLAIMS DEPARTMENT [address] Member Subscriber Plan / Payer (Ef fective 2022-Present) Name:Debra Townsend R Relation to Subscriber:Self Name:DEBRA TOWNSEND Payer ID:Not on file Group ID:[id number] Type:O Address: [address] Member Subscriber Plan / Payer (Ef fective for All Dates) Name:Debra Townsend R Relation to Subscriber:Self Name:DEBRA TOWNSEND Payer ID:[id number] (NAIC) Group ID:Not on file Type:Medicaid Managed Care Address: [facility] CLAIMS DEPARTMENT [address] [facility] [address] Member Subscriber Plan / Payer (Ef fective 2022-Present) Name:Debra Townsend R Relation to Subscriber:Self Name:DEBRA TOWNSEND Payer ID:Not on file Group ID:[id number] Type:[employer] Address: [address] [employer] [facility] FIRST Member Subscriber Plan / Payer (Ef fective 2022-) Name:Debra Townsend R Relation to Subscriber:Self Name:DEBRA TOWNSEND Payer ID:Not on file Group ID:[id number] Type:O Address: [place] [phone] [facility] Member Subscriber Plan / Payer (Ef fective 2022-) Name:Debra Townsend R Relation to Subscriber:Self Name:DEBRA TOWNSEND Payer ID:Not on file Group ID:[id number] Type:O Address: [place] [phone] [facility] Member Subscriber Plan / Payer (Ef fective 2022-) Name:Debra Townsend R Relation to Subscriber:Self Name:DEBRA TOWNSEND Payer ID:Not on file Group ID:[id number] Type:O Address: [place] [phone] [facility] Member Subscriber Plan / Payer (Ef fective 2022-) Name:Debra Townsend R Relation to Subscriber:Self Name:DEBRA TOWNSEND Payer ID:Not on file Group ID:[id number] Type:HMO Address: [place] [id number] [place] [id number] [facility] Member Subscriber Plan / Payer (Ef fective for All Dates) Name:Debra Townsend R Relation to Subscriber:Self Payer ID:Not on file Group ID:[id number] Type:O Address: [place] [phone] [facility] Advance Directives * Full Code (Latest Code Status on File) Date Activated Date Inactivated Comments 06/05/2021 6:44 PM 06/07/2021 1:53 PM Care Teams Optimization Analyst Relationship Specialty Start Date End Date Va Booker MD [address] [place] [address] PCP - General 10/19/22
--- OUTSIDE RECORDS SUMMARY | 2025-06-10 18:54 | XMS_ITS | Encounter Summary ---
Author Organization [facility] Address [address] [facility] [place] [address] Care Team Providers Care Forming Machine Adjuster Name Role Phone Va Booker MD Primary Care Provider [phone] Ashley Bedoya Unavailable Ashley Bedoya Primary Care Provider [phone] Va Booker MD Primary Care Provider + Va Booker MD Unavailable Ashley Bedoya Unavailable Reason for Visit * Reason Onset Date Comments MEDICATION REFILL 09/26/2021 Encounter Details Date Type Department Care Team (Late st Contact Info) Description 09/26/2021 Refill [facility] [address] [facility] [address] [place] [address] Briana Enamorado MD Need new address MEDICATION [...] PM CDT Legal Sex Female 5:35 PM GAGE MAKER Gender Identity Female 11/01/2022 2:28 PM CDT [...] Katie Roberts RN documented in this encounter Miscellaneous Notes * Telephone Encounter - Fidelia Erwin RN - 09/26/2021 3:21 PM GAGE MAKER Refill denied for Neurontin as patient should have sufficient refills. Last refill, 08/2021 for oneyear supply.. MAKER documented in this encounter Plan of Treatment Upcoming Encounters Date Type Department Care Team (Late st Contact Info) Description 06/17/2025 3:30 PM CDT Office Visit [facility] [address] [place] [address], [place] [phone] Sarbjit Coleman MD [address] [place] [phone] 09/04/2025 4:00 PM GAGE MAKER Video Visit [facility] - Neurology [address] [facility], [place] [phone] Jazzy Russell, WATERSHED ENGINEER-NURSE ORTHOPAEDIC [address] [place] [phone] documented as of this encounter Visit Diagnoses Not on filedocumented in this encounter Care Teams Forming Machine Adjuster Relationship Specialty Start Date End Date Va Booker MD [address] [place] [address] PCP - General 04/03/19 05/30/22 Ashley Bedoya PA [address] [place] [address] PCP - Attributed-[employer] [place] 10/18/21 12/17/22 Ashley Bedoya PA [address] [place] [address] PCP - General 05/31/22 10/18/22 Va Booker MD [address] [place] [address] PCP - General 10/19/22 Va Booker MD [address] [place] [address] PCP - Attributed[facility] [place] 12/18/22 09/19/23 Ashley Bedoya PA [address] [place] [address] PCP - Attributed-[employer] [place] 09/20/23 02/05/24 documented as of this encounter
--- OUTSIDE RECORDS SUMMARY | 2025-06-10 18:54 | XMS_ITS | Encounter Summary ---
Author Organization [facility] Address [address] [facility] [place] [address] Care Team Providers Care Rehab Liaison Name Role Phone Va Booker MD Primary Care Provider [phone] Reason for Visit * Reason Onset Date Comments Scheduling 06/09/2025 Encounter Details Date Type Department Care Team (Late st Contact Info) Description 06/09/2025 Telephone [facility] [address] [facility] [place] [address] Nikolai Morrow Scheduling Social History Tobacco Use Types Packs/Day Years [...] PM CDT 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 Very odd. I was wanting to see if you could do an ultrasound guided CSI into her biceps sheath for both diagnosis and treatment. If it takes care of her posterior shoulder pain, then we know that is thesource. Mary Anne Riddle MD documented in this encounter Plan of Treatment Upcoming Encounters Date Type Department Care Team (Late st Contact Info) Description 06/17/2025 3:30 PM CDT Office Visit [facility] [address] [place] [address], [place] [phone] Sarbjit Coleman MD [address] [place] [phone] 09/04/2025 4:00 PM MERCHANDISER SEASONAL Video Visit [facility] [address] [facility], [place] [address] Jazzy Russell, CHART CHANGER-TEST DRILLER [facility] [place] [address] documented as of this encounter Visit Diagnoses Not on filedocumented in this encounter Care Teams Rehab Liaison Relationship Specialty Start Date End Date Va Booker MD [address] [place] [address] PCP - General 10/19/22 documented as of this encounter
--- OUTSIDE RECORDS SUMMARY | 2025-06-10 18:54 | XMS_ITS | Clinical Summary ---
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
== END 2025-06-10 14:37 | disposition home or self-care (01) ==
PROVIDERS: PCP Student in an Organized Health Care Education/Training Program; Visit Provider Urology
DX: N20.0 Calculus of kidney (principal)
CPT/HCPCS: 74018